=== PATIENT | female | born 1985 | race Caucasian/White ===

== ENCOUNTER 2022-10-25 18:46 | Inpatient (IN) ==
--- NOTE | 2022-10-25 18:52 | Emergency Department Note ---
Impression & Plan Large bowel obstruction, Colonic mass, Vomiting, Generalized abdominal pain, Hypokalemia ED Provider Note NAME: MEHRDAD HASSAN AGE: 37 SEX: F ARRIVES VIA: Ambulance INFORMANT: Patient ED PROVIDER(S): Pete Lazar MD CHIEF COMPLAINT: Abdominal pain, nausea and vomiting. PLAN: Disposition: Admit MEDICAL DECISION MAKING: The patient is a pleasant 37-year-old woman with a past medical history of PTSD, hypertension, asthma who presents to the emergency department via EMS and accompanied by her partner for evaluation of continued nausea, vomiting/dry heav ing and abdominal pain which began on when she was seen in this emergency department and had a CT scan that was interpreted at the time as enteritis with description of liquid fecal retention in the ascending colon. She reports she has been attempting to manage her symptoms as instructed and attempting to hydrate with Pedialyte but cannot keep anything down. She reports feeling feverish since her symptoms began but denies objective fevers. She denies any cough, congestion, chest pain or shortness of breath. On arrival to the emergency department the patient is uncomfortable no acute distress, afebrile heart in the 100s and vital signs otherwise stable. She appears clinically dry. She has generalized abdominal discomfort without discrete tenderness. She has no guarding or rebound. WBC 11K decreased from several days ago with neutrophil predominance though no left shift. H/H is similar to prior. Platelets 611K, nonspecific. Chemistry without metabolic acidosis. Potassium 3.4 and electrolytes without significant abnormality. Total bilirubin 1.1 with direct bilirubin 0.3, nonspecific and approximate to prior. LFTs otherwise unremarkable. Lipase not elevated. hCG negative. UA without convincing evidence of infection as epithelial cells are present. Respiratory viral panel/[employer] was negative. CT of the abdomen pelvis was performed and demonstrates findings consistent with obstructive process with distention of the small bowel and right colon related to an apple core lesion seen at the level of the right transverse colon just adjacent to the hepatic flexure. Additional note is made of distribution of punctate air along the wall of the right ascending colon that is nonspecific and is difficult to exclude early or mild pneumatosis though upon discussion with stat rad radiology it is likely within the bowel though cannot say definitively. Per my discussion with the stat rad radiologist the patient's CT did appear similar several days ago. I did review the findings with the patient who after initial treatment with IV fluid hydration, antiemetics and dicyclomine had reported improvement to the degree where she had initially requested to RN to be discharged while we were still awaiting her CT report. However at this time she reports that her nausea and pain are returning. Upon my description of her findings which I reviewed on the computer at the bedside with the patient and her partner the patient describes that she was informed of a colonic lesion in the transverse colon when she had a CT scan of her abdomen in August which did not show evidence of obstruction at that time. A colonoscopy was subsequently scheduled for the first week of September but she reports she became sick when attempting to take the colonic prep and had not followed up subsequently about next steps. Case was discussed with general surgery on-call, Dr. Azul, who was able to review the patient's images. Appreciate consultation and recommendations. Agrees with placement of NG tube for decompression and plan will be for reassessment in the morning for consideration of continued conservative management versus surgical intervention. Lactic acid subsequently performed and was within normal limits. Patient did agree with placement of NG tube which per my review of plain film was appropriately placed. Case was discussed [place]. Luther, [facility] [place], who will evaluate the patient for admission. Triage Nursing notes reviewed and agree them. Prior/outside medical records reviewed Vital Signs: reviewed Differential diagnosis: Appendicitis, ovarian cyst, ovarian torsion, ectopic , TOA, PID, infections, diverticulitis, UTI, obstruction, mesenteric ischemia, aortic pathology, inflammatory bowel disease, renal colic, PUD, pancreatitis, biliary pathology, hernia, volvulus, constipation, as well as other pathologies. ER treatment provided: See below. Diagnostics interpreted by me: Cardiac Monitoring: An order for continuous cardiac monitoring was placed and demonstrated sinus tachycardia, 102 bpm, no ectopy. Laboratory studies: See below Imaging studies: See below Consultation(s): Dr. Azul, general surgery on-call. Dr. Luther [facility] [place]. HPI: The patient is a pleasant 37-year-old woman with a past medical history of PTSD, hypertension, asthma who presents to the emergency department via EMS and accompanied by her partner for evaluation of continued nausea, vomiting/dry heaving and abdominal pain which began on when she was seen in this emergency department and had a CT scan that was interpreted at the time as enteritis with description of liquid fecal retention in the ascending colon. She reports she has been attempting to manage her symptoms as instructed and attempting to hydrate with Pedialyte but cannot keep anything down. She reports feeling feverish since her symptoms began but denies objective fevers. She denies any cough, congestion, chest pain or shortness of breath. ROS: See above HPI for pertinent positives & negatives. A total of 10 systems reviewed and were otherwise negative. VITALS:See Below PHYSICAL EXAMINATION: GENERAL: Awake, alert, comfortable-appearing, in no distress, BMI 36.6. HENT: Normocephalic, atraumatic. Oropharynx with dry mucous membranes and otherwise unremarkable. EYES: Normal conjunctiva. Sclera non-icteric. NECK: Supple. No nuchal rigidity. FROM. No JVD. RESPIRATORY: Clear to auscultation. CARDIAC: Tachycardic rate, normal rhythm. Extremities warm and well perfused. Pulses equal. ABDOMEN: Soft, non-distended. Generalized abdominal discomfort without discrete tenderness to palpation. No rebound or guarding. No masses. RECTAL: Deferred. MUSCULOSKELETAL: Chest examination reveals no tenderness. The back is symmetrical on inspection without obvious abnormality. There is no CVA tenderness to palpation. No joint edema. LOWER EXTREMITIES: Calves are equal size bilaterally and non-tender. No edema. No discoloration. NEURO: Normal sensorium. No sensory or motor deficits noted. SKIN: No rash or jaundice noted. Pete Lazar MD Past Med/Surg History Medical History Allergic rhinitis Anemia Anxiety Asthma inhaler prn>has not used recently History of COVID-19 02/2020--no issues now Major depression PTSD (post-traumatic stress disorder) Surgical History History of tooth extraction all top teeth removed History of wisdom tooth extraction Hx laparoscopic cholecystectomy (05/07/21) Robotic Assisted Laparoscopic Cholecystectomy - Alexis Dyer DO 05/07/2021 Family History Father Skin cancer Diabetes Hypertension Mother Diabetes Kidney disease Hypertension Other No family history of adverse response to anesthesia Denies family history of Ovarian cancer Prostate cancer Myocardial infarction Breast cancer Colorectal cancer Social History Smoking Status: Never smoker Second Hand Exposure: No; Do You Dip or Chew Tobacco: No; Hx Alcohol Use: No Hx Substance Use: No Preferred Language: Ukrainian Communication Ability: Effective Visual Impairment: Limited Hearing Ability: Normal 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 Seatbelt Use: always Sunscreen Use: Yes Assistive Devices: Denture - Upper and Glasses Allergies Allergies Allergy/AdvReac Type Severity Reaction Status Date / Time No Known Allergies Allergy Mild Verified 08/27/22 09:17 Home Meds Home Medications Medication Instructions Recorded Confirmed venlafaxine 150 mg 150 mg PO QAM ##0 12/03/17 10/25/22 capsule,extended release 24 hr (Effexor XR) gabapentin 100 mg capsule 100 mg PO QID #0 caps 09/25/20 10/25/22 aspirin 81 mg tablet,delayed 81 mg PO DAILY 09/22/21 10/25/22 release cetirizine 10 mg tablet (Zyrtec) 10 mg PO HS 08/27/22 10/25/22 Zofran 1 tab PO DIRECTED PRN N/V 10/25/22 10/25/22 acetaminophen 500 mg tablet 500 mg PO Q6H PRN Pain 10/25/22 10/25/22 fluticasone propionate 110 2 puff inhalation BID PRN Other 10/25/22 10/25/22 mcg/actuation HFA aerosol inhaler (Flovent HFA) Previous Rx's Medication Instructions Recorded albuterol sulfate 90 mcg/actuation 2 puff inhalation Q4H PRN 03/17/22 aerosol inhaler (Ventolin HFA) Shortness Of Breath #18 grams lisinopril 10 mg tablet 10 mg PO QAM #90 tabs 10/12/22 hydroxyzine HCl 10 mg tablet 10 mg PO TID PRN anxiety #30 tabs 10/22/22 Results & Data (ED) Vital Signs Vital Signs - 24 hr 10/25/22 18:50 10/25/22 18:50 10/25/22 18:54 Temperature 36.9 C 36.9 C Temperature Source Oral Oral Pulse Rate 101 H 102 H Pulse Rate [Right Radial] Respiratory Rate 18 12 Respiratory Effort / Characteristics Non-Labored Respiratory Depth Normal Respiratory Pattern Regular Blood Pressure 120/85 Blood Pressure [Right Arm] Blood Pressure Mean 96 Blood Pressure Mean [Right Arm] Pulse Oximetry 100 100 Oxygen Delivery Method Room Air Room Air Sepsis Recent Fever Within 48 Hours No Sepsis New/Unexplained Change in Mental Status No Sepsis Action Taken by Nursing No Action Required 10/25/22 20:42 10/25/22 22:00 10/25/22 23:00 Temperature Temperature Source Pulse Rate Pulse Rate [Right Radial] 92 H 89 Respiratory Rate 16 18 15 Respiratory Effort / Characteristics Respiratory Depth Respiratory Pattern Blood Pressure Blood Pressure [Right Arm] 118/84 141/84 H Blood Pressure Mean Blood Pressure Mean [Right Arm] 95 103 Pulse Oximetry 100 97 Oxygen Delivery Method Room Air Room Air Sepsis Recent Fever Within 48 Hours Sepsis New/Unexplained Change in Mental Status Sepsis Action Taken by Nursing 10/26/22 01:00 Temperature Temperature Source Pulse Rate Pulse Rate [Right Radial] 100 H Respiratory Rate 16 Respiratory Effort / Characteristics Non-Labored Spontaneous Respiratory Depth Normal Respiratory Pattern Regular Blood Pressure Blood Pressure [Right Arm] 130/82 Blood Pressure Mean Blood Pressure Mean [Right Arm] 98 Pulse Oximetry 99 Oxygen Delivery Method Room Air Sepsis Recent Fever Within 48 Hours Sepsis New/Unexplained Change in Mental Status Sepsis Action Taken by Nursing Laboratory Data Attestation: I reviewed the patient's lab results. 10/25/22 19:02 10/25/22 19:02 Lab Results 10/25/22 10/25/22 10/25/22 Range/Units 19:02 19:02 19:02 WBC 11.15 H (4.8-10.8) K/ul RBC 4.48 (4.20-5.40) M/uL Hgb 9.8 L (12.0-16.0) g/dl Hct 32.1 L (37.0-47.0) % MCV 71.7 L (80.0-100.0) fL MCH 21.9 L (25.0-34.0) pg MCHC 30.5 L (32.0-36.0) g/dL RDW Std Deviation 38.4 (36.4-46.3) fL RDW Coeff of Kenneth 15.0 H (11.5-14.5) % Plt Count 611 H (130-400) K/uL MPV 8.5 L (9.4-12.4) fL Immature Gran % (Auto) 0.6 % Neut % (Auto) 69.8 % Lymph % (Auto) 19.6 % Glades % (Auto) 8.3 % Eos % (Auto) 1.2 % Baso % (Auto) 0.5 % Neut # (Auto) 7.78 H (1.40-6.50) K/uL Lymph # (Auto) 2.19 (1.2-3.4) K/uL Glades # (Auto) 0.92 H (0.11-0.59) K/uL Eos # (Auto) 0.13 (0-0.50) K/uL Baso # (Auto) 0.06 (0-0.2) K/uL Immature Gran # (Auto) 0.07 (0.01-0.20) K/uL Sodium 132 L (136-145) mmol/L Potassium 3.4 L (3.5-5.1) mmol/L Chloride 94 L (98-107) mmol/L Carbon Dioxide 28 (21-32) mmol/L Anion Gap 10 (3-11) BUN 13 (6-23) mg/dl Creatinine 0.82 (0.6-1.2) mg/dl Est Cr Clr Drug Dosing 113.8 ml/min Est GFR ( Amer) 106.0 ml/min Est GFR (Non-Af Amer) 91.4 ml/min BUN/Creatinine Ratio 15.9 (10-20) Glucose 100 H (70-99(Fasting)) mg/dl Lactate (0.4-2.0) mmol/L Calcium 9.4 (8.6-10.3) mg/dl Magnesium 1.9 (1.7-2.4) mg/dl Total Bilirubin 1.1 H (0.2-1.0) mg/dl Direct Bilirubin 0.3 H (0-0.2) mg/dl AST 17 (13-39) U/L ALT 16 (7-52) U/L Alkaline Phosphatase 72 (34-104) U/L Total Protein 7.4 (6.0-8.3) gm/dl Albumin 4.4 (3.4-5.0) gm/dl Globulin 3.0 (2.5-4.0) gm/dl Albumin/Globulin Ratio 1.5 (0.9-2) Lipase 14 (11-82) U/L HCG, Qual Negative (Negative) Urine Color Urine Appearance (Clear) Urine pH (4.5-7.5) Ur Specific [place] (1.000-1.030) Urine Protein (Negative) Urine Glucose (UA) (Negative) Urine Ketones (Negative) Urine Blood (Negative) Urine Nitrite (Negative) Urine Bilirubin (Negative) Urine Urobilinogen (Negative) Ur Leukocyte Esterase (Negative) Urine WBC (Auto) (0-5) /hpf Urine RBC (Auto) (0-4) /hpf U Hyaline Cast (Auto) (0-5) /lpf U Epithel Cells (Auto) (0-5) /lpf Urine Bacteria (Auto) (Negative) Adenovirus (PCR) (NotDetected) B. pertussis DNA (PCR) (NotDetected) B.parapertussis DNA PCR (NotDetected) C. pneumoniae DNA (PCR) (NotDetected) Coronavirus OC43 (PCR) (NotDetected) Coronavirus HKU1 (PCR) (NotDetected) Coronavirus 229E (PCR) (NotDetected) SARS-CoV-2 (PCR) (NotDetected) Coronavirus NL63 (PCR) (NotDetected) Human Metapneumovir PCR (NotDetected) Influenza Type A (PCR) (NotDetected) Influenza Type B (PCR) (NotDetected) M. pneumoniae (PCR) (NotDetected) Parainfluenza 1 (PCR) (NotDetected) Parainfluenza 2 (PCR) (NotDetected) Parainfluenza 3 (PCR) (NotDetected) Parainfluenza 4 (PCR) (NotDetected) RSV (PCR) (NotDetected) Entero/Rhino (PCR) (NotDetected) 10/25/22 10/26/22 10/26/22 Range/Units 19:02 01:16 02:09 WBC (4.8-10.8) K/ul RBC (4.20-5.40) M/uL Hgb (12.0-16.0) g/dl Hct (37.0-47.0) % MCV (80.0-100.0) fL MCH (25.0-34.0) pg MCHC (32.0-36.0) g/dL RDW Std Deviation (36.4-46.3) fL RDW Coeff of Kenneth (11.5-14.5) % Plt Count (130-400) K/uL MPV (9.4-12.4) fL Immature Gran % (Auto) % Neut % (Auto) % Lymph % (Auto) % Glades % (Auto) % Eos % (Auto) % Baso % (Auto) % Neut # (Auto) (1.40-6.50) K/uL Lymph # (Auto) (1.2-3.4) K/uL Glades # (Auto) (0.11-0.59) K/uL Eos # (Auto) (0-0.50) K/uL Baso # (Auto) (0-0.2) K/uL Immature Gran # (Auto) (0.01-0.20) K/uL Sodium (136-145) mmol/L Potassium (3.5-5.1) mmol/L Chloride (98-107) mmol/L Carbon Dioxide (21-32) mmol/L Anion Gap (3-11) BUN (6-23) mg/dl Creatinine (0.6-1.2) mg/dl Est Cr Clr Drug Dosing ml/min Est GFR ( Amer) ml/min Est GFR (Non-Af Amer) ml/min BUN/Creatinine Ratio (10-20) Glucose (70-99(Fasting)) mg/dl Lactate 1.2 (0.4-2.0) mmol/L Calcium (8.6-10.3) mg/dl Magnesium (1.7-2.4) mg/dl Total Bilirubin (0.2-1.0) mg/dl Direct Bilirubin (0-0.2) mg/dl AST (13-39) U/L ALT (7-52) U/L Alkaline Phosphatase (34-104) U/L Total Protein (6.0-8.3) gm/dl Albumin (3.4-5.0) gm/dl Globulin (2.5-4.0) gm/dl Albumin/Globulin Ratio (0.9-2) Lipase (11-82) U/L HCG, Qual (Negative) Urine Color Dark Yellow Urine Appearance Clear (Clear) Urine pH 6.0 (4.5-7.5) Ur Specific [place] > 1.045 H (1.000-1.030) Urine Protein Trace H (Negative) Urine Glucose (UA) Negative (Negative) Urine Ketones Trace H (Negative) Urine Blood Negative (Negative) Urine Nitrite Negative (Negative) Urine Bilirubin 1+ H (Negative) Urine Urobilinogen Positive H (Negative) Ur Leukocyte Esterase 2+ H (Negative) Urine WBC (Auto) >30 H (0-5) /hpf Urine RBC (Auto) 0-4 (0-4) /hpf U Hyaline Cast (Auto) 0 (0-5) /lpf U Epithel Cells (Auto) >30 H (0-5) /lpf Urine Bacteria (Auto) Negative (Negative) Adenovirus (PCR) Not Detected (NotDetected) B. pertussis DNA (PCR) Not Detected (NotDetected) B.parapertussis DNA PCR Not Detected (NotDetected) C. pneumoniae DNA (PCR) Not Detected (NotDetected) Coronavirus OC43 (PCR) Not Detected (NotDetected) Coronavirus HKU1 (PCR) Not Detected (NotDetected) Coronavirus 229E (PCR) Not Detected (NotDetected) SARS-CoV-2 (PCR) Not Detected (NotDetected) Coronavirus NL63 (PCR) Not Detected (NotDetected) Human Metapneumovir PCR Not Detected (NotDetected) Influenza Type A (PCR) Not Detected (NotDetected) Influenza Type B (PCR) Not Detected (NotDetected) M. pneumoniae (PCR) Not Detected (NotDetected) Parainfluenza 1 (PCR) Not Detected (NotDetected) Parainfluenza 2 (PCR) Not Detected (NotDetected) Parainfluenza 3 (PCR) Not Detected (NotDetected) Parainfluenza 4 (PCR) Not Detected (NotDetected) RSV (PCR) Not Detected (NotDetected) Entero/Rhino (PCR) Not Detected (NotDetected) Administered Medications Lactated Ringer's (Lr) 1,000 mls @ 125 mls/hr IV .Q8H GAYLA Stop: 11/25/22 03:29 Last Admin: 10/26/22 04:40 Dose: 125 mls/hr Documented By: LANEY Morphine Sulfate (Morphine Sulfate 2 Mg/Ml Carp) 2 mg IV Q4H PRN PRN Reason: Moderate Pain (Scale 4, 5, 6) Stop: 11/09/22 04:06 Last Admin: 10/26/22 04:39 Dose: 2 mg Documented By: LANEY Ondansetron HCl (Ondansetron Inj 2 Mg/Ml 2 Ml Vial) 4 mg IV Q4H PRN PRN Reason: Nausea Stop: 11/25/22 03:59 Last Admin: 10/26/22 04:39 Dose: 4 mg Documented By: LANEY Discontinued Medications Dicyclomine HCl (Dicyclomine Hcl 10 Mg/Ml 2 Ml Amp/Vial) 20 mg IM NOW ONE Stop: 10/25/22 20:25 Last Admin: 10/25/22 21:27 Dose: 20 mg Documented By: EFREN Sodium Chloride (Nss 1000ml) 1,000 mls @ 999 mls/hr IV .Q1H1M ONE Stop: 10/25/22 19:55 Last Infusion: 10/25/22 20:45 Dose: 999 mls/hr Documented By: Admin: 10/25/22 19:14 Dose: 999 mls/hr Documented By: EFREN Famotidine (Pepcid 20mg Iv Push) 20 mg in 5 mls @ 2.5 mls/min IV NOW STA Stop: 10/25/22 18:56 Last Admin: 10/25/22 19:14 Dose: 2.5 mls/min Documented By: EFREN Sodium Chloride (Nss 1000ml) 1,000 mls @ 999 mls/hr IV .Q1H1M ONE Stop: 10/25/22 21:24 Last Infusion: 10/25/22 22:29 Dose: 999 mls/hr Documented By: Admin: 10/25/22 21:26 Dose: 999 mls/hr Documented By: EFREN Acetaminophen (Ofirmev) 1,000 mg in 100 mls @ 400 mls/hr IV NOW STA Stop: 10/25/22 20:38 Last Infusion: 10/25/22 21:58 Dose: 400 mls/hr Documented By: Admin: 10/25/22 21:27 Dose: 400 mls/hr Documented By: EFREN Promethazine HCl (Phenergan) 25 mg in 51 mls @ 204 mls/hr IV NOW STA Stop: 10/25/22 20:41 Last Infusion: 10/25/22 21:41 Dose: 204 mls/hr Documented By: Admin: 10/25/22 21:26 Dose: 204 mls/hr Documented By: EFREN Sodium Chloride (Nss 1000ml) 1,000 mls @ 999 mls/hr IV .Q1H1M ONE Stop: 10/26/22 01:39 Last Infusion: 10/26/22 04:01 Dose: 0 mls/hr Documented By: Admin: 10/26/22 02:10 Dose: 999 mls/hr Documented By: SUSIE Ioversol (Optiray 320 100ml) 94 ml IV ONCE ONE Stop: 10/25/22 21:25 Last Admin: 10/25/22 21:25 Dose: 94 ml Documented By: KARMEN Lidocaine HCl (Lidocaine 2% Jelly 5 Ml Tube) 5 ml EXT NOW ONE Stop: 10/26/22 00:54 Last Admin: 10/26/22 01:26 Dose: 5 ml Documented By: SUSIE Lorazepam (Lorazepam 2 Mg/1 Ml Vial) 0.5 mg IV NOW STA Stop: 10/26/22 00:54 Last Admin: 10/26/22 01:06 Dose: 0.5 mg Documented By: SUSIE Morphine Sulfate (Morphine Sulfate 4 Mg/Ml 1 Ml Carp\Vial) 4 mg IV NOW STA Stop: 10/26/22 00:08 Last Admin: 10/26/22 00:27 Dose: 4 mg Documented By: SUSIE Ondansetron HCl (Ondansetron Inj 2 Mg/Ml 2 Ml Vial) 4 mg IV NOW STA Stop: 10/25/22 18:56 Last Admin: 10/25/22 19:14 Dose: 4 mg Documented By: EFREN Ondansetron HCl (Ondansetron Inj 2 Mg/Ml 2 Ml Vial) 4 mg IV NOW STA Stop: 10/26/22 00:08 Last Admin: 10/26/22 00:27 Dose: 4 mg Documented By: SUSIE Imaging Data Radiologist's Impression: Abdomen/Pelvis CT 10/25/22 20:27 CR Exam(s): CT ABDOMEN + PELVIS With Contrast IV Amt: 94 ml optiray 320 EXAM: CT Abdomen and Pelvis With Intravenous Contrast CLINICAL HISTORY: Reason for exam: abd pain, n/v. TECHNIQUE: Axial computed tomography images of the abdomen and pelvis with intravenous contrast. Automated exposure control was utilized for the study. A dose lowering technique was utilized adhering to the principles of ALARA. CONTRAST: Patient received 94 ml optiray 320 of IV contrast COMPARISON: 10/22/2022. FINDINGS: Lung bases: Unremarkable. No mass. No consolidation. ABDOMEN: Liver: Unremarkable. No mass. Gallbladder and bile ducts: Nonvisualized gallbladder suggestive of previous cholecystectomy. No ductal dilation. Pancreas: Unremarkable. No mass. No ductal dilation. Spleen: Unremarkable. No splenomegaly. Adrenals: Unremarkable. No mass. Kidneys and ureters: Unremarkable. No solid mass. No hydronephrosis. Stomach and bowel: There is unusual distribution of air throughout the right colon along the wall, cannot exclude pneumatosis of the findings may indicate nonspecific distribution of air along the wall. Diffuse dilatation of the right colon and several small bowel loops demonstrated with fluid within the lumen. These findings are most likely secondary to an apple core lesion identified at the level of the right transverse colon, just to the left of the hepatic flexure of the colon. The remainder of the descending colon reveals decompressed lumen. No mucosal thickening. PELVIS: Appendix: No findings to suggest acute appendicitis. Bladder: Unremarkable. No mass. Reproductive: Unremarkable as visualized. ABDOMEN and PELVIS: Intraperitoneal space: Unremarkable. No free air. No significant fluid collection. Bones/joints: No acute fracture. No dislocation. Soft tissues: Unremarkable. Vasculature: Unremarkable. No abdominal aortic aneurysm. Lymph nodes: Unremarkable. No enlarged lymph nodes. IMPRESSION: 1. Distention of the small bowel and right colon, likely secondary to an obstructive process from an apple core lesion seen at the level of the transverse right colon, just to the left side of the hepatic flexure. Recommend follow-up with colonoscopy. 2. Distribution of punctate air along the wall of the right ascending colon, nonspecific, difficult to exclude early or mild pneumatosis. Clinical significance is indeterminate and if indicated, follow-up recommended to evaluate progression. 3. Question prior cholecystectomy otherwise unremarkable abdominal viscera. Communications: Call Doctor Other Electronically signed by: Marcie Justin MD 10/25/22 23:35 PM Discharge Plan Visit Data Chief Complaint: Vomiting Stated Complaint: NAUSEA, VOMITING ED Provider: Pete Lazar Discharge Problem: Large bowel obstruction, Colonic mass, Vomiting, Generalized abdominal pain, Hypokalemia Patient Disposition: Admitted As Inpatient Discharge Instructions Interventions: ED Discharge Assessment Last Done: 10/26/22 03:25
[2022-10-25] MEDS ORDERED: ONDANSETRON INJ 2 MG/ML 2 ML VIAL IV STA (18:55)
[2022-10-25] MEDS ORDERED: FAMOTIDINE 20MG IV PUSH 20 MG/5 ML SYR IV STA (18:55)
[2022-10-25] MEDS ORDERED: SODIUM CHLORIDE 0.9% 1000ML 1,000 ML IV ONE ×2 (18:55→20:24)
[2022-10-25 19:33] LABS: Basophils # (auto) 0.06 K/uL (0-0.2); Basophils % (auto) 0.5 %; Eosinophils # (auto) 0.13 K/uL (0-0.50); Eosinophils % (auto) 1.2 %; Hematocrit (blood only) 32.1 % (37.0-47.0); Hemoglobin 9.8 g/dl (12.0-16.0); Immature Granulocytes # (auto) 0.07 K/uL (0.01-0.20); Immature Granulocytes % (auto) 0.6 %; Lymphocytes # (auto) 2.19 K/uL (1.2-3.4); Lymphocytes % (auto) 19.6 %; Mean Corpuscular Hemoglobin 21.9 pg (25.0-34.0); Mean Corpuscular Hgb Conc 30.5 g/dL (32.0-36.0); Mean Corpuscular Volume 71.7 fL (80.0-100.0); Mean Platelet Volume 8.5 fL (9.4-12.4); Monocytes # (auto) 0.92 K/uL (0.11-0.59); Monocytes % (auto) 8.3 %; Neutrophils # (auto) 7.78 K/uL (1.40-6.50); Neutrophils % (auto) 69.8 %; Platelet Count 611 K/uL (130-400); RDW Standard Deviation 38.4 fL (36.4-46.3); Red Blood Count 4.48 M/uL (4.20-5.40); White Blood Count 11.15 K/ul (4.8-10.8)
[2022-10-25 19:44] LABS: Albumin Globulin Ratio 1.5 (0.9-2); Albumin Level 4.4 gm/dl (3.4-5.0); BUN Creatinine Ratio 15.9 (10-20); Bilirubin Direct 0.3 mg/dl (0-0.2); Bilirubin,Total 1.1 mg/dl (0.2-1.0); Calcium 9.4 mg/dl (8.6-10.3); Creatinine Clr Calc Pharmacy 113.8 ml/min; Est GFR (Non-African American) 91.4 ml/min; Magnesium 1.9 mg/dl (1.7-2.4); Potassium 3.4 mmol/L (3.5-5.1); Total Protein 7.4 gm/dl (6.0-8.3)
[2022-10-25 19:50] LABS: Pregnancy Test, Serum Negative (Negative)
[2022-10-25] MEDS ORDERED: ACETAMINOPHEN 1,000 MG/100 ML VIAL IV STA (20:24)
[2022-10-25] MEDS ORDERED: DICYCLOMINE HCL 10 MG/ML 2 ML AMP/VIAL IM ONE (20:24)
[2022-10-25] MEDS ORDERED: PROMETHAZINE 25 MG/51 ML BAG IV STA (20:27)
[2022-10-25] MEDS ORDERED: OPTIRAY 320 100ml IV ONE (21:24)
[2022-10-25 22:27] LABS: Adenovirus PCR Not Detected (NotDetected); Bordetella parapertussis PCR Not Detected (NotDetected); Bordetella pertussis PCR Not Detected (NotDetected); Chlamydia pneumoniae PCR Not Detected (NotDetected); Coronavirus 229E PCR Not Detected (NotDetected); Coronavirus CoV-2 (COVID19)PCR Not Detected (NotDetected); Coronavirus HKU1 PCR Not Detected (NotDetected); Coronavirus NL63 PCR Not Detected (NotDetected); Coronavirus OC43PCR Not Detected (NotDetected); Human Metapneumovirus PCR Not Detected (NotDetected); Influenza A PCR Not Detected (NotDetected); Influenza B PCR Not Detected (NotDetected); Mycoplasma pneumoniae PCR Not Detected (NotDetected); Parainfluenza Virus 1 PCR Not Detected (NotDetected); Parainfluenza Virus 2 PCR Not Detected (NotDetected); Parainfluenza Virus 3 PCR Not Detected (NotDetected); Parainfluenza Virus 4 PCR Not Detected (NotDetected); Respiratory Syncytial VirusPCR Not Detected (NotDetected); Rhinovirus/Enterovirus PCR Not Detected (NotDetected)
--- NOTE | 2022-10-25 23:36 | CT Scan Report ---
Exam(s): CT ABDOMEN + PELVIS With Contrast IV Amt: 94 ml optiray 320 EXAM: CT Abdomen and Pelvis With Intravenous Contrast CLINICAL HISTORY: Reason for exam: abd pain, n/v. TECHNIQUE: Axial computed tomography images of the abdomen and pelvis with intravenous contrast. Automated exposure control was utilized for the study. A dose lowering technique was utilized adhering to the principles of ALARA. CONTRAST: Patient received 94 ml optiray 320 of IV contrast COMPARISON: 10/22/2022. FINDINGS: Lung bases: Unremarkable. No mass. No consolidation. ABDOMEN: Liver: Unremarkable. No mass. Gallbladder and bile ducts: Nonvisualized gallbladder suggestive of previous cholecystectomy. No ductal dilation. Pancreas: Unremarkable. No mass. No ductal dilation. Spleen: Unremarkable. No splenomegaly. Adrenals: Unremarkable. No mass. Kidneys and ureters: Unremarkable. No solid mass. No hydronephrosis. Stomach and bowel: There is unusual distribution of air throughout the right colon along the wall, cannot exclude pneumatosis of the findings may indicate nonspecific distribution of air along the wall. Diffuse dilatation of the right colon and several small bowel loops demonstrated with fluid within the lumen. These findings are most likely secondary to an apple core lesion identified at the level of the right transverse colon, just to the left of the hepatic flexure of the colon. The remainder of the descending colon reveals decompressed lumen. No mucosal thickening. PELVIS: Appendix: No findings to suggest acute appendicitis. Bladder: Unremarkable. No mass. Reproductive: Unremarkable as visualized. ABDOMEN and PELVIS: Intraperitoneal space: Unremarkable. No free air. No significant fluid collection. Bones/joints: No acute fracture. No dislocation. Soft tissues: Unremarkable. Vasculature: Unremarkable. No abdominal aortic aneurysm. Lymph nodes: Unremarkable. No enlarged lymph nodes. IMPRESSION: 1. Distention of the small bowel and right colon, likely secondary to an obstructive process from an apple core lesion seen at the level of the transverse right colon, just to the left side of the hepatic flexure. Recommend follow-up with colonoscopy. 2. Distribution of punctate air along the wall of the right ascending colon, nonspecific, difficult to exclude early or mild pneumatosis. Clinical significance is indeterminate and if indicated, follow-up recommended to evaluate progression. 3. Question prior cholecystectomy otherwise unremarkable abdominal viscera. Communications: Call Doctor Other Electronically signed by: Marcie Justin MD 10/25/22 23:35 PM
[2022-10-26] MEDS ORDERED: ONDANSETRON INJ 2 MG/ML 2 ML VIAL IV STA (00:07)
[2022-10-26] MEDS ORDERED: MoRPHine SULFATE 4 MG/ML 1 ML CARP\\VIAL IV STA (00:07)
[2022-10-26] MEDS ORDERED: SODIUM CHLORIDE 0.9% 1000ML 1,000 ML IV ONE (00:39)
[2022-10-26] MEDS ORDERED: LORazepam 2 MG/1 ML VIAL IV STA (00:53)
[2022-10-26] MEDS ORDERED: LIDOCAINE 2% JELLY 5 ML TUBE EXT ONE (00:53)
[2022-10-26 01:29] LABS: Appearance Urine Clear (Clear); Bacteria Urine Automated Negative (Negative); Blood Urine Negative (Negative); Color Urine Dark Yellow; Epithelial Cell Urine Auto >30 /lpf (0-5); Glucose Urine UA Negative (Negative); Ketones Urine Trace (Negative); Leukocyte Esterase Urine 2+ (Negative); Nitrite Urine Negative (Negative); Protein Urine Trace (Negative); RBC Urine Automated 0-4 /hpf (0-4); Specific Gravity Urine > 1.045 (1.000-1.030); Urobilinogen Urine Positive (Negative); WBC Urine Automated >30 /hpf (0-5)
[2022-10-26 01:30] LABS: Bilirubin Urine 1+ (Negative)
[2022-10-26 01:38] LABS: Cast Urine Automated 0 /lpf (0-5)
--- NOTE | 2022-10-26 03:13 | History & Physical Report ---
Date of Service October 26, 2022 Assessment & Plan (1) Large bowel obstruction: Plan: Patient is a 37-year-old female with history of known colonic mass found by CT imaging. Patient found today to have colonic obstruction. An NG tube has been placed and patient is hemodynamically stable. -Admit to MedSurg -Likely secondary to colonic mass described as apple core lesion in right colon -NG tube placed for decompression -N.p.o. status, LR at 125 cc/h -General surgery consulted for bowel obstruction, appreciate recommendations -Consider GI consult for colonoscopy -Zofran as needed for nausea (2) Hypokalemia: Plan: - Likely from poor p.o. intake -Replete as needed (3) Colonic mass: Plan: - As above -Patient requiring colonoscopy with biopsy to confirm diagnosis -Imaging suspicious for malignancy (4) Anxiety: Plan: - Hold Effexor and hydroxyzine in the setting of n.p.o. -We will put Ativan as needed in for anxiety (5) Hypertension: Plan: - Hold BP medications in the setting of poor p.o. intake and n.p.o. status (6) PTSD (post-traumatic stress disorder): Plan: - As above (7) Major depression: Plan: -As above (8) Asthma: Plan: - Albuterol as needed for wheezing/shortness of breath Plan Dispo: Admit to MedSurg with general surgery consult Diet: N.p.o. with LR at 125 cc/h DVT prophylaxis: Lovenox CODE STATUS: Full code History of Present Illness Chief Complaint: Nausea/Vomiting Primary Care Provider: Svetlana Hunt DO Patient is a 37-year-old female presents to the hospital for nausea and vomiting. Since last , patient has had intermittent nausea with poor p.o. intake and it was acutely worse tonight compared to earlier. She was in the ED 2 days ago and at that time she was told she had a "GI bug". She reports to me that the only thing that she is able to keep down is Sprite and some water. Of note, patient had CT of the and then day and was found to have a lesion suspicious for colonic malignancy. She was to follow-up and have a colonoscopy done, however, she was unable to tolerate the prep and this was never done. Patient denies headache, bright red blood per rectum, hematemesis, or symptoms. She does report that her last bowel movement was 10/25 in the afternoon. Otherwise no other complaints at this time ED course: Patient evaluated by ED provider. Labs were significant for mildly elevated white count 11.1, hemoglobin of 9.8, platelet count of 611, sodium of 132, potassium 3.4, chloride of 94, total bilirubin 1.1, direct bilirubin of 0.3, and urinalysis positive for bilirubin, leukocyte esterase, and white blood cells. A CT of the abdomen demonstrated distention of the small bowel and right colon likely secondary from obstructive process from an apple core lesion seen at the level of the transverse right colon. Due to poor p.o. intake, likely obstruction, and hypokalemia, the hospital service was consulted for admission and further management. Allergies Allergy/AdvReac Type Severity Reaction Status Date / Time No Known Allergies Allergy Mild Verified 08/27/22 09:17 Home Medications Medication Instructions Recorded Confirmed Type venlafaxine 150 mg 150 mg PO QAM ##0 12/03/17 11/02/22 History capsule,extended release 24 hr (Effexor XR) gabapentin 100 mg capsule 100 mg PO QID #0 caps 09/25/20 11/02/22 History albuterol sulfate 90 mcg/actuation 2 puff inhalation Q4H PRN 03/17/22 11/02/22 Rx aerosol inhaler (Ventolin HFA) Shortness Of Breath #18 grams hydroxyzine HCl 10 mg tablet 10 mg PO TID PRN anxiety #30 tabs 10/22/22 11/02/22 Rx fluticasone propionate 110 2 puff inhalation BID PRN Other 10/25/22 11/02/22 History mcg/actuation HFA aerosol inhaler (Flovent HFA) oxycodone-acetaminophen 5 mg-325 1 tab PO Q4H PRN pain #18 tabs 10/30/22 11/02/22 Rx mg tablet acetaminophen 500 mg tablet 1,000 mg PO Q6H PRN Pain 11/02/22 11/02/22 History cetirizine 10 mg tablet (Zyrtec) 10 mg PO HS PRN allergy symptoms 11/02/22 11/02/22 History Past Med/Surg History Medical History Allergic rhinitis Anemia Anxiety Asthma inhaler prn>has not used recently History of COVID-19 02/2020--no issues now Major depression PTSD (post-traumatic stress disorder) Surgical History History of tooth extraction all top teeth removed History of wisdom tooth extraction Hx laparoscopic cholecystectomy (05/07/21) Robotic Assisted Laparoscopic Cholecystectomy - Alexis Dyer, 05/07/2021 Family History Father Skin cancer Diabetes Hypertension Mother Diabetes Kidney disease Hypertension Other No family history of adverse response to anesthesia Denies family history of Ovarian cancer Prostate cancer Myocardial infarction Breast cancer Colorectal cancer Social History Smoking Status: Never smoker Second Hand Exposure: No; Do You Dip or Chew Tobacco: No; Hx Alcohol Use: No Hx Substance Use: No Preferred Language: Salvadorean Communication Ability: Effective Visual Impairment: Limited Hearing Ability: Normal Intensive Care Unit Registered Nurse Required: No Beliefs That Will Affect Care: None marital status: Current Living Situation: Family Current Living Situation Comment: and 4 kids current occupational status: employed How many Children do You have: 4 Feels Safe at Home: Yes Childhood Exposure to Second-Hand Smoke: No Diet: regular caffeine: Yes during the past year weight has: remained stable Dental Care, Regularly: Yes Physical Activity Frequency: 5-6 Times per Week Physical Activity Frequency Comment: walks. Seatbelt Use: always Sunscreen Use: Yes Assistive Devices: None Review of Systems Review of Systems: All systems reviewed & are unremarkable except as noted in HPI & below Physical Exam Constitutional: WD/WN, vitals as above Eyes: + anicteric sclerae Neck: trachea midline, no thyromegaly Respiratory: normal respiratory effort, lungs clear to auscultation Cardiovascular: RRR, no murmur, no edema Gastrointestinal (Abdomen): Inspection/Auscultation: abdomen normal to inspection and + hypoactive bowel sounds Musculoskeletal: Head/Neck/Chest: normocephalic and head atraumatic Neurologic: moves all extremities Psychiatric: Orientation: alert and oriented x 3 Results & Data Results & Data Vital Signs (Past 12 Hours) Vital Signs Temp Pulse Pulse Resp BP BP Pulse Ox 10/26/22 01:00 100 H 16 130/82 99 10/25/22 23:00 89 15 141/84 H 97 10/25/22 22:00 18 10/25/22 20:42 92 H 16 118/84 100 10/25/22 18:54 102 H 12 100 10/25/22 18:50 36.9 C 10/25/22 18:50 36.9 C 101 H 18 120/85 100 O2 Del Method 10/26/22 01:00 Room Air 10/25/22 23:00 Room Air 10/25/22 22:00 10/25/22 20:42 Room Air 10/25/22 18:54 Room Air 10/25/22 18:50 10/25/22 18:50 Room Air Code Status & VTE Plan VTE Prophylaxis Plan VTE Prophylaxis will be ordered: Yes Supervising Physician Co-Signing Physician Notes Attending addendum: I have physically seen this patient, have supervised the medical residents activities, and agree with the H&P unless as otherwise noted. Assessment and Plan: Large bowel obstruction- NPO LR at [address] with colon mass/apple core lesion on right colon as likely cause NG tube to low intermittent suction Consult gastroenterology and general surgery Zosyn 4.5 g IV every 8 hours Zofran 4 mg IV every 6 hours as needed Famotidine 20 mg IV every 12 hours Hypokalemia- Corrected with IV fluids and follow labs serially Hypertension- Oral medications on hold IV Lopressor/hydralazine as needed Remaining orders and notations as noted
[2022-10-26] MEDS ORDERED: LORazepam 2 MG/1 ML VIAL IV PRN (03:40)
[2022-10-26] MEDS ORDERED: ONDANSETRON INJ 2 MG/ML 2 ML VIAL IV PRN ×2 (04:00→10:58)
[2022-10-26] MEDS ORDERED: ALBUTEROL HFA 8 GM INHALER INH PRN (04:00)
[2022-10-26] MEDS ORDERED: MoRPHine SULFATE 4 MG/ML 1 ML CARP\\VIAL IV PRN (04:07)
[2022-10-26] MEDS ORDERED: MoRPHine SULFATE 2 MG/ML CARP IV PRN (04:07)
[2022-10-26] MEDS: LACTATED RINGER'S 1,000 ML IV SCH ×2 (04:40→16:04)
--- NOTE | 2022-10-26 07:34 | XRay Report ---
KUB CLINICAL HISTORY: Nasogastric tube placement. COMPARISON STUDY: CT of the abdomen and pelvis October 25, 2022. FINDINGS: The tip of the nasogastric tube is within the gastric fundus. Multiple loops of dilated sma ll bowel are again noted, as shown on CT. IMPRESSION: Tip of nasogastric tube within the gastric fundus. ACT 112: Negative or not required by law. Electronically signed by: Rolando Long M.D. 10/26/2022 7:31 AM
[2022-10-26] MEDS: ENOXAPARIN INJ 40 MG/0.4 ML SYR SQ SCH (08:24)
[2022-10-26] MEDS: FLUTICASONE FUROATE 200MCG 14 PUFFS/INHALER INH SCH (08:24)
--- NOTE | 2022-10-26 09:29 | Surgery Consultation ---
Date of Consultation October 26, 2022 Assessment & Plan (1) Colonic mass: (2) Large bowel obstruction: Plan 37-year-old woman with colonic mass and large bowel obstruction. 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 I had a discussion with her concerning the findings of the CT scan as well as the need for surgical management of this. We discussed the risks and benefits of a exploratory laparotomy with extended right hemicolectomy. All her questions were answered, she is agreeable to proceed. We will take her to the operating room at the earliest convenience. History of Present Illness Reason for Consultation: large bowel obstruction from transverse colon mass Requesting Physician: ER physician Attending Physician: Alysia Cervantes MD History of Present Illness 37-year-old woman presents with 3-day history of upper abdominal pain, distention, bloating. She has had nausea and vomiting with this. She states she has been having normal bowel movements. Flank pain in August and was seen in the emergency department at which time a CT scan demonstrated what appeared to be an apple core lesion in the transverse colon without obstruction. She was recommended to be admitted to the hospital for GI consultation and colonoscopy, however she left AMA. Patient colonoscopy, however she canceled it as she states she was unable to take the prep. She then continued in her usual state of health until October 22, at which point she represented to the emergency department with epigastric pain and bloating. A CT scan at that time redemonstrated the mass as well as a significant amount of fluid in the right colon. The CT read stated possible diarrheal illness or enteritis. She was discharged home and represented yesterday with the same symptoms. Repeat CT scan demonstrates again the apple core lesion in the proximal transverse colon, surrounding lymph nodes, near complete obstruction at the level of this mass and distended right colon. There does not appear to be any metastatic disease within the abdominal cavity/liver. She denies fevers or chills. She has been admitted to the hospital Allergies Allergy/AdvReac Type Severity Reaction Status Date / Time No Known Allergies Allergy Mild Verified 08/27/22 09:17 Home Medications Medication Instructions Recorded Confirmed Type venlafaxine 150 mg 150 mg PO QAM ##0 12/03/17 10/25/22 History capsule,extended release 24 hr (Effexor XR) gabapentin 100 mg capsule 100 mg PO QID #0 caps 09/25/20 10/25/22 History aspirin 81 mg tablet,delayed 81 mg PO DAILY 09/22/21 10/25/22 History release albuterol sulfate 90 mcg/actuation 2 puff inhalation Q4H PRN 03/17/22 10/25/22 Rx aerosol inhaler (Ventolin HFA) Shortness Of Breath #18 grams cetirizine 10 mg tablet (Zyrtec) 10 mg PO HS 08/27/22 10/25/22 History lisinopril 10 mg tablet 10 mg PO QAM #90 tabs 10/12/22 10/25/22 Rx hydroxyzine HCl 10 mg tablet 10 mg PO TID PRN anxiety #30 tabs 10/22/22 10/25/22 Rx Zofran 1 tab PO DIRECTED PRN N/V 10/25/22 10/25/22 History acetaminophen 500 mg tablet 500 mg PO Q6H PRN Pain 10/25/22 10/25/22 History fluticasone propionate 110 2 puff inhalation BID PRN Other 10/25/22 10/25/22 History mcg/actuation HFA aerosol inhaler (Flovent HFA) Patient History Medical History Allergic rhinitis Anemia Anxiety Asthma inhaler prn>has not used recently History of COVID-19 02/2020--no issues now Major depression PTSD (post-traumatic stress disorder) Surgical History History of tooth extraction all top teeth removed History of wisdom tooth extraction Hx laparoscopic cholecystectomy (05/07/21) Robotic Assisted Laparoscopic Cholecystectomy - Alexis Dyer DO 05/07/2021 Family History Father Skin cancer Diabetes Hypertension Mother Diabetes Kidney disease Hypertension Other No family history of adverse response to anesthesia Denies family history of Ovarian cancer Prostate cancer Myocardial infarction Breast cancer Colorectal cancer Social History Smoking Status: Never smoker Second Hand Exposure: No; Do You Dip or Chew Tobacco: No; Hx Alcohol Use: No Hx Substance Use: No Preferred Language: Kenyan Communication Ability: Effective Visual Impairment: Limited Hearing Ability: Normal Webfocus Developer Required: No Beliefs That Will Affect Care: None marital status: Current Living Situation: Family Current Living Situation Comment: and 4 kids current occupational status: employed How many Children do You have: 4 Other Information That Helps Us Care for You: No Feels Safe at Home: Yes Safety Concerns: Feels Safe At This Time Childhood Exposure to Second-Hand Smoke: No Diet: regular caffeine: Yes during the past year weight has: remained stable Dental Care, Regularly: Yes Physical Activity Frequency: 5-6 Times per Week Physical Activity Frequency Comment: walks. Seatbelt Use: always Sunscreen Use: Yes Assistive Devices: Denture - Upper and Glasses Review of Systems Review of Systems: All systems reviewed & are unremarkable except as noted in HPI & below Physical Exam Constitutional: WD/WN, vitals as above Eyes: PERRL, conjunctivae normal, anicteric sclerae Neck: trachea midline, no thyromegaly Respiratory: normal respiratory effort; no respiratory distress and no labored breathing Cardiovascular: Rate/Rhythm: regular rate and regular rhythm Gastrointestinal (Abdomen): Inspection/Auscultation: abdomen normal to inspection; abdomen not distended Percussion/Palpation: + abdomen tender ( epigastric and right upper quadrant) and abdomen soft; no guarding and abdomen not rigid Skin: no rashes, warm and dry Psychiatric: A+Ox3, euthymic affect Results & Data Vital Signs (Past 12 Hours) Vital Signs Temp Pulse Pulse Resp BP Pulse Ox O2 Del Method 10/26/22 08:00 36.7 C 81 14 136/86 96 Room Air 10/26/22 04:48 Room Air 10/26/22 04:48 36.5 C 102 H 16 151/92 H 97 Room Air 10/26/22 03:00 90 16 138/86 97 Room Air 10/26/22 01:00 100 H 16 130/82 99 Room Air 10/25/22 23:00 89 15 141/84 H 97 Room Air 10/25/22 22:00 18 Laboratory Results 10/26/22 10/26/22 10/25/22 Range/Units 02:09 01:16 19:02 WBC (4.8-10.8) K/ul RBC (4.20-5.40) M/uL Hgb (12.0-16.0) g/dl Hct (37.0-47.0) % MCV (80.0-100.0) fL MCH (25.0-34.0) pg MCHC (32.0-36.0) g/dL RDW Std Deviation (36.4-46.3) fL RDW Coeff of Kenneth (11.5-14.5) % Plt Count (130-400) K/uL MPV (9.4-12.4) fL Immature Gran % (Auto) % Neut % (Auto) % Lymph % (Auto) % [place] % (Auto) % Eos % (Auto) % Baso % (Auto) % Neut # (Auto) (1.40-6.50) K/uL Lymph # (Auto) (1.2-3.4) K/uL [place] # (Auto) (0.11-0.59) K/uL Eos # (Auto) (0-0.50) K/uL Baso # (Auto) (0-0.2) K/uL Immature Gran # (Auto) (0.01-0.20) K/uL Sodium (136-145) mmol/L Potassium (3.5-5.1) mmol/L Chloride (98-107) mmol/L Carbon Dioxide (21-32) mmol/L Anion Gap (3-11) BUN (6-23) mg/dl Creatinine (0.6-1.2) mg/dl Est Cr Clr Drug Dosing ml/min Est GFR ( Amer) ml/min Est GFR (Non-Af Amer) ml/min BUN/Creatinine Ratio (10-20) Glucose (70-99(Fasting)) mg/dl Lactate 1.2 (0.4-2.0) mmol/L Calcium (8.6-10.3) mg/dl Magnesium (1.7-2.4) mg/dl Total Bilirubin (0.2-1.0) mg/dl Direct Bilirubin (0-0.2) mg/dl AST (13-39) U/L ALT (7-52) U/L Alkaline Phosphatase (34-104) U/L Total Protein (6.0-8.3) gm/dl Albumin (3.4-5.0) gm/dl Globulin (2.5-4.0) gm/dl Albumin/Globulin Ratio (0.9-2) Lipase (11-82) U/L HCG, Qual (Negative) Urine Color Dark Yellow Urine Appearance Clear (Clear) Urine pH 6.0 (4.5-7.5) Ur Specific [place] > 1.045 H (1.000-1.030) Urine Protein Trace H (Negative) Urine Glucose (UA) Negative (Negative) Urine Ketones Trace H (Negative) Urine Blood Negative (Negative) Urine Nitrite Negative (Negative) Urine Bilirubin 1+ H (Negative) Urine Urobilinogen Positive H (Negative) Ur Leukocyte Esterase 2+ H (Negative) Urine WBC (Auto) >30 H (0-5) /hpf Urine RBC (Auto) 0-4 (0-4) /hpf U Hyaline Cast (Auto) 0 (0-5) /lpf U Epithel Cells (Auto) >30 H (0-5) /lpf Urine Bacteria (Auto) Negative (Negative) Adenovirus (PCR) Not Detected (NotDetected) B. pertussis DNA (PCR) Not Detected (NotDetected) B.parapertussis DNA PCR Not Detected (NotDetected) C. pneumoniae DNA (PCR) Not Detected (NotDetected) Coronavirus OC43 (PCR) Not Detected (NotDetected) Coronavirus HKU1 (PCR) Not Detected (NotDetected) Coronavirus 229E (PCR) Not Detected (NotDetected) SARS-CoV-2 (PCR) Not Detected (NotDetected) Coronavirus NL63 (PCR) Not Detected (NotDetected) Human Metapneumovir PCR Not Detected (NotDetected) Influenza Type A (PCR) Not Detected (NotDetected) Influenza Type B (PCR) Not Detected (NotDetected) M. pneumoniae (PCR) Not Detected (NotDetected) Parainfluenza 1 (PCR) Not Detected (NotDetected) Parainfluenza 2 (PCR) Not Detected (NotDetected) Parainfluenza 3 (PCR) Not Detected (NotDetected) Parainfluenza 4 (PCR) Not Detected (NotDetected) RSV (PCR) Not Detected (NotDetected) Entero/Rhino (PCR) Not Detected (NotDetected) 10/25/22 10/25/22 10/25/22 Range/Units 19:02 19:02 19:02 WBC 11.15 H (4.8-10.8) K/ul RBC 4.48 (4.20-5.40) M/uL Hgb 9.8 L (12.0-16.0) g/dl Hct 32.1 L (37.0-47.0) % MCV 71.7 L (80.0-100.0) fL MCH 21.9 L (25.0-34.0) pg MCHC 30.5 L (32.0-36.0) g/dL RDW Std Deviation 38.4 (36.4-46.3) fL RDW Coeff of Kenneth 15.0 H (11.5-14.5) % Plt Count 611 H (130-400) K/uL MPV 8.5 L (9.4-12.4) fL Immature Gran % (Auto) 0.6 % Neut % (Auto) 69.8 % Lymph % (Auto) 19.6 % [place] % (Auto) 8.3 % Eos % (Auto) 1.2 % Baso % (Auto) 0.5 % Neut # (Auto) 7.78 H (1.40-6.50) K/uL Lymph # (Auto) 2.19 (1.2-3.4) K/uL [place] # (Auto) 0.92 H (0.11-0.59) K/uL Eos # (Auto) 0.13 (0-0.50) K/uL Baso # (Auto) 0.06 (0-0.2) K/uL Immature Gran # (Auto) 0.07 (0.01-0.20) K/uL Sodium 132 L (136-145) mmol/L Potassium 3.4 L (3.5-5.1) mmol/L Chloride 94 L (98-107) mmol/L Carbon Dioxide 28 (21-32) mmol/L Anion Gap 10 (3-11) BUN 13 (6-23) mg/dl Creatinine 0.82 (0.6-1.2) mg/dl Est Cr Clr Drug Dosing 113.8 ml/min Est GFR ( Amer) 106.0 ml/min Est GFR (Non-Af Amer) 91.4 ml/min BUN/Creatinine Ratio 15.9 (10-20) Glucose 100 H (70-99(Fasting)) mg/dl Lactate (0.4-2.0) mmol/L Calcium 9.4 (8.6-10.3) mg/dl Magnesium 1.9 (1.7-2.4) mg/dl Total Bilirubin 1.1 H (0.2-1.0) mg/dl Direct Bilirubin 0.3 H (0-0.2) mg/dl AST 17 (13-39) U/L ALT 16 (7-52) U/L Alkaline Phosphatase 72 (34-104) U/L Total Protein 7.4 (6.0-8.3) gm/dl Albumin 4.4 (3.4-5.0) gm/dl Globulin 3.0 (2.5-4.0) gm/dl Albumin/Globulin Ratio 1.5 (0.9-2) Lipase 14 (11-82) U/L HCG, Qual Negative (Negative) Urine Color Urine Appearance (Clear) Urine pH (4.5-7.5) Ur Specific [place] (1.000-1.030) Urine Protein (Negative) Urine Glucose (UA) (Negative) Urine Ketones (Negative) Urine Blood (Negative) Urine Nitrite (Negative) Urine Bilirubin (Negative) Urine Urobilinogen (Negative) Ur Leukocyte Esterase (Negative) Urine WBC (Auto) (0-5) /hpf Urine RBC (Auto) (0-4) /hpf U Hyaline Cast (Auto) (0-5) /lpf U Epithel Cells (Auto) (0-5) /lpf Urine Bacteria (Auto) (Negative) Adenovirus (PCR) (NotDetected) B. pertussis DNA (PCR) (NotDetected) B.parapertussis DNA PCR (NotDetected) C. pneumoniae DNA (PCR) (NotDetected) Coronavirus OC43 (PCR) (NotDetected) Coronavirus HKU1 (PCR) (NotDetected) Coronavirus 229E (PCR) (NotDetected) SARS-CoV-2 (PCR) (NotDetected) Coronavirus NL63 (PCR) (NotDetected) Human Metapneumovir PCR (NotDetected) Influenza Type A (PCR) (NotDetected) Influenza Type B (PCR) (NotDetected) M. pneumoniae (PCR) (NotDetected) Parainfluenza 1 (PCR) (NotDetected) Parainfluenza 2 (PCR) (NotDetected) Parainfluenza 3 (PCR) (NotDetected) Parainfluenza 4 (PCR) (NotDetected) RSV (PCR) (NotDetected) Entero/Rhino (PCR) (NotDetected) Diagnostic Findings ADDENDUM ADDENDUM: 10/25/22 23:47 Call Doctor Regarding Other, called Dr. Lazar on 10/25 23:47 (-04:00) Electronically signed by: Marcie Justin MD Electronically signed by: Marcie Justin MD 10/25/22 23:35 PM ADDENDUM END Exam(s): CT ABDOMEN + PELVIS With Contrast IV Amt: 94 ml optiray 320 EXAM: CT Abdomen and Pelvis With Intravenous Contrast CLINICAL HISTORY: Reason for exam: abd pain, n/v. TECHNIQUE: Axial computed tomography images of the abdomen and pelvis with intravenous contrast. Automated exposure control was utilized for the study. A dose lowering technique was utilized adhering to the principles of ALARA. CONTRAST: Patient received 94 ml optiray 320 of IV contrast COMPARISON: 10/22/2022. FINDINGS: Lung bases: Unremarkable. No mass. No consolidation. ABDOMEN: Liver: Unremarkable. No mass. Gallbladder and bile ducts: Nonvisualized gallbladder suggestive of previous cholecystectomy. No ductal dilation. Pancreas: Unremarkable. No mass. No ductal dilation. Spleen: Unremarkable. No splenomegaly. Adrenals: Unremarkable. No mass. Kidneys and ureters: Unremarkable. No solid mass. No hydronephrosis. Stomach and bowel: There is unusual distribution of air throughout the right colon along the wall, cannot exclude pneumatosis of the findings may indicate nonspecific distribution of air along the wall. Diffuse dilatation of the right colon and several small bowel loops demonstrated with fluid within the lumen. These findings are most likely secondary to an apple core lesion identified at the level of the right transverse colon, just to the left of the hepatic flexure of the colon. The remainder of the descending colon reveals decompressed lumen. No mucosal thickening. PELVIS: Appendix: No findings to suggest acute appendicitis. Bladder: Unremarkable. No mass. Reproductive: Unremarkable as visualized. ABDOMEN and PELVIS: Intraperitoneal space: Unremarkable. No free air. No significant fluid collection. Bones/joints: No acute fracture. No dislocation. Soft tissues: Unremarkable. Vasculature: Unremarkable. No abdominal aortic aneurysm. Lymph nodes: Unremarkable. No enlarged lymph nodes. IMPRESSION: 1. Distention of the small bowel and right colon, likely secondary to an obstructive process from an apple core lesion seen at the level of the transverse right colon, just to the left side of the hepatic flexure. Recommend follow-up with colonoscopy. 2. Distribution of punctate air along the wall of the right ascending colon, nonspecific, difficult to exclude early or mild pneumatosis. Clinical significance is indeterminate and if indicated, follow-up recommended to evaluate progression. 3. Question prior cholecystectomy otherwise unremarkable abdominal viscera.
--- NOTE | 2022-10-26 10:19 | Anesthesiology Consultation ---
Date of Service October 26, 2022 Assessment & Plan (1) Encounter for pre-operative examination: Chart Review Chart Review: Acceptable Risk for Surgery and Patient NOT seen in Pre Admission Testing Consults Requested none History Surgery Operation Date: 10/26/22 07:00 Proposed Procedures p Exploratory Laparotomy with Right Extended Hemicolectomy - Erlin Azul MD Height/Weight Height: 5 ft 6 in Weight: 102.9 kg Allergies Allergy/AdvReac Type Severity Reaction Status Date / Time No Known Allergies Allergy Mild Verified 08/27/22 09:17 Medications Home Medications Medication Instructions Recorded Confirmed Last Taken venlafaxine 150 mg 150 mg PO QAM ##0 12/03/17 10/25/22 05/06/21 07:00 capsule,extended release 24 hr (Effexor XR) gabapentin 100 mg capsule 100 mg PO QID #0 caps 09/25/20 10/25/22 05/06/21 21:00 aspirin 81 mg tablet,delayed 81 mg PO DAILY 09/22/21 10/25/22 Unknown release albuterol sulfate 90 mcg/actuation 2 puff inhalation Q4H PRN 03/17/22 10/25/22 Unknown aerosol inhaler (Ventolin HFA) Shortness Of Breath #18 grams cetirizine 10 mg tablet (Zyrtec) 10 mg PO HS 08/27/22 10/25/22 Unknown lisinopril 10 mg tablet 10 mg PO QAM #90 tabs 10/12/22 10/25/22 Unknown hydroxyzine HCl 10 mg tablet 10 mg PO TID PRN anxiety #30 tabs 10/22/22 10/25/22 Unknown Zofran 1 tab PO DIRECTED PRN N/V 10/25/22 10/25/22 10/25/22 acetaminophen 500 mg tablet 500 mg PO Q6H PRN Pain 10/25/22 10/25/22 10/25/22 fluticasone propionate 110 2 puff inhalation BID PRN Other 10/25/22 10/25/22 Unknown mcg/actuation HFA aerosol inhaler (Flovent HFA) Active Medications Generic Name Dose Route Start Last Admin Trade Name Freq PRN Reason Stop Dose Admin Enoxaparin Sodium 40 mg 10/26/22 09:00 10/26/22 08:24 Enoxaparin Inj 40 Mg/0.4 Ml Syr SQ 11/25/22 08:59 40 mg Q24H GAYLA Administration Fluticasone Furoate 1 puffs 10/26/22 09:00 10/26/22 08:24 Fluticasone Furoate 200mcg 14 Puffs/Inhaler INH 11/25/22 08:59 1 puffs DAILY GAYLA Administration Lactated Ringer's 1,000 mls @ 125 mls/hr 10/26/22 03:30 10/26/22 04:40 Lr IV 11/25/22 03:29 125 mls/hr .Q8H GAYLA Administration Morphine Sulfate 2 mg 10/26/22 04:07 10/26/22 04:39 Morphine Sulfate 2 Mg/Ml Carp IV 11/09/22 04:06 2 mg Q4H PRN Administration Moderate Pain (Scale 4, 5, 6) Morphine Sulfate 4 mg 10/26/22 04:07 10/26/22 08:24 Morphine Sulfate 4 Mg/Ml 1 Ml Carp\Vial IV 11/09/22 04:06 4 mg Q4H PRN Administration Severe Pain (Scale 7, 8, 9,10) Ondansetron HCl 4 mg 10/26/22 04:00 10/26/22 04:39 Ondansetron Inj 2 Mg/Ml 2 Ml Vial IV 11/25/22 03:59 4 mg Q4H PRN Administration Nausea Past Medical History Medical History Allergic rhinitis Anemia Anxiety Asthma inhaler prn>has not used recently History of COVID-19 02/2020--no issues now Major depression PTSD (post-traumatic stress disorder) Past Family History Family History Father Skin cancer Diabetes Hypertension Mother Diabetes Kidney disease Hypertension Other No family history of adverse response to anesthesia Denies family history of Ovarian cancer Prostate cancer Myocardial infarction Breast cancer Colorectal cancer Past Surgical History Surgical History History of tooth extraction all top teeth removed History of wisdom tooth extraction Hx laparoscopic cholecystectomy (05/07/21) Robotic Assisted Laparoscopic Cholecystectomy - Alexis Dyer DO 05/07/2021 Social History Smoking Status: Never smoker Do You Dip or Chew Tobacco: No Hx Alcohol Use: No alcohol intake frequency: holidays/special occasions only Hx Substance Use: No substance use type: does not use Physical Exam Vital Signs Last Vital Signs Temp 98.1 F 10/26/22 08:00 Pulse 81 10/26/22 08:00 Resp 14 10/26/22 08:00 BP 136/86 10/26/22 08:00 Pulse Ox 96 10/26/22 08:00 O2 Del Method Room Air 10/26/22 08:00 Testing Laboratory Results 10/25/22 19:02 10/25/22 19:02 Urine Color Dark Yellow 10/26/22 01:16 Urine Appearance Clear (Clear) 10/26/22 01:16 Urine pH 6.0 (4.5-7.5) 10/26/22 01:16 Ur Specific [place] > 1.045 (1.000-1.030) H 10/26/22 01:16 Urine Protein Trace (Negative) H 10/26/22 01:16 Urine Glucose (UA) Negative (Negative) 10/26/22 01:16 Urine Ketones Trace (Negative) H 10/26/22 01:16 Urine Nitrite Negative (Negative) 10/26/22 01:16 Ur Leukocyte Esterase 2+ (Negative) H 10/26/22 01:16 Urine WBC (Auto) >30 /hpf (0-5) H 10/26/22 01:16 Urine RBC (Auto) 0-4 /hpf (0-4) 10/26/22 01:16 U Hyaline Cast (Auto) 0 /lpf (0-5) 10/26/22 01:16 U Epithel Cells (Auto) >30 /lpf (0-5) H 10/26/22 01:16 Urine Bacteria (Auto) Negative (Negative) 10/26/22 01:16 Electrocardiogram Date: 10/22/22 Sinus tachycardia Diffuse Minor Nonspecific T wave abnormality Abnormal ECG Chest X-Ray Date: 10/22/22 Findings: + NAD
[2022-10-26] MEDS ORDERED: PROPOFOL IV EMULSION 10 MG/ML 20 ML VIAL IV ONE (10:35)
[2022-10-26] MEDS ORDERED: ONDANSETRON INJ 2 MG/ML 2 ML VIAL ONE (10:35)
[2022-10-26] MEDS ORDERED: MIDAZOLAM HCL 1 MG/ML 2ML VIAL ONE (10:35)
[2022-10-26] MEDS ORDERED: fentaNYL citrate PF 100 MCG/2 ML VIAL ONE (10:35)
[2022-10-26] MEDS ORDERED: LIDOCAINE 2% 2 ML VIAL/AMP(20MG/ML) INFIL ONE (10:35)
[2022-10-26] MEDS ORDERED: DEXAMETHASONE SOD INJ 4 MG/ML VIAL ONE (10:35)
[2022-10-26] MEDS ORDERED: KETAMINE 50 MG/5 ML SYRINGE ONE (10:37)
[2022-10-26] MEDS ORDERED: SUGAMMADEX SODIUM 200 MG/2 ML VIAL IV ONE (10:37)
[2022-10-26] MEDS ORDERED: ATROPINE SULFATE 0.1 MG/ML 10ML SYR IV PRN (10:58)
[2022-10-26] MEDS ORDERED: ePHEDrine sulfate 50 MG/ML AMP IV PRN (10:58)
[2022-10-26] MEDS ORDERED: cefOXitin 2,000 MG in DEXTROSE 5% 50 ML IV STA (10:59)
--- NOTE | 2022-10-26 13:38 | Post Operative Brief Note ---
Immediate Post Op Note v1 Date of Surgery October 26, 2022 Pre & Post Diagnosis Operation Date: 10/26/22 07:00 Pre-Op Diagnosis: BOWEL OBSTRUCTION Post-Op Diagnosis: BOWEL OBSTRUCTION I identified the patient and participated in the time-out.: Yes Procedure Operation Date: 10/26/22 07:00 Actual Procedures p Exploratory Laparotomy with Right Extended Hemicolectomy(Right) - Erlin Azul MD Surgeon Erlin Azul MD Fairground Operator KULDIP Enamorado assisted with tissue retraction, camera op, closure Estimated Blood Loss 25 Findings Consistent with Post-Op Diagnosis Large mass in the proximal to mid transverse colon; no peritoneal or omental mets, no masses palpable in the liver Drains Amin Catheter (inserted by Wendi Craft at beginning of case)
--- NOTE | 2022-10-26 13:51 | Operative Report ---
Post Operative Report Pre & Post Diagnosis Operation Date: 10/26/22 07:00 Pre-Op Diagnosis: BOWEL OBSTRUCTION Post-Op Diagnosis: BOWEL OBSTRUCTION I identified the patient and participated in the time-out.: Yes Procedure Operation Date: 10/26/22 07:00 Actual Procedures p Exploratory Laparotomy with Right Extended Hemicolectomy(Right) - Erlin Azul MD Surgeon Erlin Azul MD Geographic Information Systems Director KULDIP Enamorado assisted with tissue retraction, camera op, closure Estimated Blood Loss 25 Findings Consistent with Post-Op Diagnosis Large obstructing mass in the proximal to mid transverse colon; dilated fluid- filled right and proximal transverse colon proximal to the mass; no omental or peritoneal metastases noted; no masses palpable in the liver. Proceeded with extended right hemicolectomy with primary anastomosis Specimens Right and proximal transverse colon Drains None Anesthesia Type General Complications No immediate complications Indications Obstructing mass in the proximal to mid transverse colon Description of Procedure Patient was taken to the operating room, placed supine on the operating table. A timeout was performed, perioperative antibiotics were administered, SCD boots were placed. After adequate anesthesia and analgesia was obtained, a Amin catheter was placed, and the abdomen was prepped and draped in the normal sterile fashion. A midline incision was made curving around the umbilicus, this was carried down to the fascia. The fascia was opened with the electrocautery. The peritoneum was identified and entered. The abdomen was opened to its fullest extent. Immediately on entry we encountered a significant amount of inflammatory turbid fluid. There is no feculent fluid or purulent fluid within the abdomen. This fluid was suctioned free. The omentum was identified and retracted up and cephalad, exposing the transverse colon. I was able to identify the firm mass in the mid proximal transverse colon. There is a significant obstruction at this point and there was a dilated and significantly fluid-filled right colon. The liver was palpated and no masses were noted in either lobe of the liver. There is no evidence of omental or peritoneal metastases. A Bookwalter retractor was placed. We began our dissection at the cecum. The cecum and right colon were mobilized from the right pelvic sidewall along the white line of Toldt using a combination of blunt dissection and Bovie electrocautery. This was carried up into the hepatic flexure. Care was taken to avoid injury to the duodenum below as well as the kidney below. We then worked back from the transverse colon. The transverse colon was detached from the omentum at a point distal to the mass. This was then carried proximally. This was done with combination of the electrocautery and the LigaSure device. Carefully the hepatic flexure was mobilized up and into the incision. Once the mobilization was complete, a site was selected on the terminal ileum, and the bowel was transected in this location using a SEBAS stapler. Dissection then commenced in the mesentery with the LigaSure device, taking care to take the e ntire blood supply and lymphatics of the ileocolic and middle colic artery. First the ileocolic pedicle was skeletonized. Clamps were placed, and it was transected. The ileocolic pedicle was then oversewn with two 0-silk sutures. A site was selected approximately 6 cm distal to the mass on the transverse colon. The colon was transected in this location with a SEBAS stapler. The mesentery was then dissected with the LigaSure device back towards the middle colic pedicle. Again this was skeletonized, clamped, transected. The middle colic pedicle was ligated with two 0-silk sutures. The specimen was sent off the field for pathology. Attention was turned to hemostasis, which was noted to be excellent. The abdomen was copiously irrigated and suctioned free. An [id number], functional end-to-end anastomosis was then created between the terminal ileum and the mid transverse colon using the SEBAS stapler. The common channel was closed with a TA stapler. A stitch was placed at the base of the staple line of 3-0 silk. The mesenteric defect was closed with a running 3-0 Vicryl suture. Again hemostasis was checked and was excellent. Again the abdomen was copiously irrigated and suctioned free. As there was no spillage of bowel contents and no perforation, no drain was left. The omentum was replaced into the abdominal cavity. There was one section of the omentum that do the dissection was very long and thin. This was transected with the LigaSure device so as to avoid any risk of bowel obstruction due to bowel looping around this omentum. The removed omentum was sent off the field for specimen. The fascia was closed with a running #1 looped PDS suture. The subcutaneous tissue was irrigated and closed with surgical clips. Dressings were applied. A binder was applied. She tolerated the procedure without complication, was transferred in stable condition to the PACU. All instrument, needle, and sponge counts were correct at the end of the case. My mental health assistant was necessary throughout the procedure for tissue retraction, possible camera operation, and closure of the wounds. I understand that section 1842(b)(7)(D) of the Social Security act generally prohibits Medicare physician fee schedule payment for the services of assistants at surgery in teaching hospitals when qualified residents are available to furnish such services. I certify that the services for which payment is claimed were medically necessary and that no qualified resident was available to perform the services. I further understand that these services are subject to postpayment review by the Medicare carrier. I attest to the content of the Intraoperative Record and any orders documented therein. Any exceptions are noted below.
[2022-10-26] MEDS: fentaNYL citrate PF 100 MCG/2 ML VIAL IV PRN ×4 (14:02→14:17)
[2022-10-26] MEDS: HYDROmorphone INJ 2 MG/ML SYR/VIAL IV PRN ×4 (14:22→14:37)
--- NOTE | 2022-10-26 14:49 | Anesthesiology Progress Note ---
Date of Service October 26, 2022 Anesthesia Post Procedure Vital Signs Vital Signs: Temp Pulse Pulse Pulse Pulse Resp BP 10/26/22 14:40 103 H 12 10/26/22 14:30 103 H 12 10/26/22 14:20 106 H 12 10/26/22 14:10 107 H 12 10/26/22 14:00 111 H 12 10/26/22 13:50 113 H 20 10/26/22 13:40 96.8 F L 104 H 14 10/26/22 10:34 98.1 F 111 H 20 10/26/22 08:00 98.1 F 81 14 10/26/22 04:48 10/26/22 04:48 97.7 F 102 H 16 10/26/22 03:00 90 16 10/26/22 01:00 100 H 16 10/25/22 23:00 89 15 10/25/22 22:00 18 10/25/22 20:42 92 H 16 10/25/22 18:54 102 H 12 10/25/22 18:50 98.4 F 10/25/22 18:50 98.4 F 101 H 18 120/85 BP Pulse Ox O2 Del Method O2 Flow Rate 10/26/22 14:40 127/79 96 Oxymask 2 10/26/22 14:30 113/87 97 Oxymask 3 10/26/22 14:20 123/86 98 Oxymask 5 10/26/22 14:10 128/88 98 Oxymask 5 10/26/22 14:00 123/89 99 Oxymask 5 10/26/22 13:50 107/79 98 Oxymask 11 10/26/22 13:40 111/78 99 Oxymask 11 10/26/22 10:34 136/96 Room Air 10/26/22 08:00 136/86 96 Room Air 10/26/22 04:48 Room Air 10/26/22 04:48 151/92 H 97 Room Air 10/26/22 03:00 138/86 97 Room Air 10/26/22 01:00 130/82 99 Room Air 10/25/22 23:00 141/84 H 97 Room Air 10/25/22 22:00 10/25/22 20:42 118/84 100 Room Air 10/25/22 18:54 100 Room Air 10/25/22 18:50 07/23 18:50 100 Room Air Pain Intensity Upper Abdomen: Pain Intensity: 4 Abdomen: Pain Intensity: 6 Transfer of Care Handoff Completed per policy Notes Mental Status: alert / awake / arousable and participated in evaluation Patient Amnestic to Procedure: Yes Nausea / Vomiting: adequately controlled Pain: adequately controlled and improving with treatment Airway Patency, RR, SpO2: stable & adequate BP & HR: stable & adequate Hydration State: stable & adequate Anesthetic Complications: no major complications apparent and Pt Satisfied with anesthetic care
[2022-10-26] MEDS ORDERED: SODIUM CHLORIDE 0.9% 1000ML 1,000 ML IV SCH (15:15)
[2022-10-26] MEDS ORDERED: NALOXONE HCL 0.4 MG/1 ML VIAL/CARP IV PRN (15:15)
[2022-10-26 16:01] LABS: Hematocrit (blood only) 31.7 % (37.0-47.0); Hemoglobin 9.6 g/dl (12.0-16.0); Mean Corpuscular Hemoglobin 21.9 pg (25.0-34.0); Mean Corpuscular Hgb Conc 30.3 g/dL (32.0-36.0); Mean Corpuscular Volume 72.4 fL (80.0-100.0); Mean Platelet Volume 8.7 fL (9.4-12.4); Platelet Count 595 K/uL (130-400); RDW Coefficient of Variation 15.1 % (11.5-14.5); RDW Standard Deviation 38.9 fL (36.4-46.3); Red Blood Count 4.38 M/uL (4.20-5.40); White Blood Count 16.48 K/ul (4.8-10.8)
[2022-10-26] MEDS: MoRPHine SULFATE PCA 30 MG/30 ML IV PRN (16:13)
[2022-10-26 16:17] LABS: Basophils # (auto) 0.04 K/uL (0-0.2); Basophils % (auto) 0.2 %; Eosinophils # (auto) 0.01 K/uL (0-0.50); Eosinophils % (auto) 0.1 %; Immature Granulocytes % (auto) 0.6 %; Lymphocytes # (auto) 0.81 K/uL (1.2-3.4); Lymphocytes % (auto) 4.9 %; Neutrophils # (auto) 15.02 K/uL (1.40-6.50); Neutrophils % (auto) 91.2 %
[2022-10-26 16:42] LABS: Albumin Globulin Ratio 1.5 (0.9-2); Albumin Level 3.2 gm/dl (3.4-5.0); BUN Creatinine Ratio 16.9 (10-20); Bilirubin,Total 0.9 mg/dl (0.2-1.0); Calcium 7.9 mg/dl (8.6-10.3); Creatinine Clr Calc Pharmacy 158.2 ml/min; Est GFR (African American) 135.7 ml/min; Est GFR (Non-African American) 117.1 ml/min; Globulin 2.2 gm/dl (2.5-4.0); Magnesium 1.7 mg/dl (1.7-2.4); Potassium 3.9 mmol/L (3.5-5.1); Total Protein 5.4 gm/dl (6.0-8.3)
[2022-10-26] MEDS ORDERED: CHLORASEPTIC 1.4% SOLN 180 ML BTL MT PRN (17:06)
--- NOTE | 2022-10-26 17:14 | History & Physical Bridge Note ---
Date of Service October 26, 2022 History & Physical Bridge Note I have examined the patient, reviewed the History & Physical and in the interval since the performance of the History & Physical I have noted the following changes of clinical significance: Pt had right hemicolectomy today. Was seen post op and on EXHAUSTER ENGINEER pump. Having significant pain in throat from NGT and would like it to be removed. Pain in abdomen controlled with EXHAUSTER ENGINEER. No nausea. Labs repeated and iron studies show severe iron deficiency--she is agreeable to IV iron and reports having it in the past. VSS drowsy but wakes up and responds appropriately RRR no mgr CTAB no wcr Abd hypoactive BS, soft, dressing in place, +TTP over incision Ext no edema continue IVFS, NGT can be removed, continue strict NPO Dilaudid EXHAUSTER ENGINEER, await return of bowel function await path results start IV venofer x 3 doses follow CBC, CMP, Mag, phos in AM
[2022-10-26] MEDS: IRON SUCROSE 300 MG in SODIUM CHLORIDE 0.9% 250 ML IV SCH (17:33)
[2022-10-27] MEDS: LACTATED RINGER'S 1,000 ML IV SCH ×4 (00:05→22:29)
[2022-10-27] MEDS: MoRPHine SULFATE PCA 30 MG/30 ML IV PRN (04:45)
[2022-10-27] MEDS: KETOROLAC TROMETHAMINE 15 MG/ML VIAL IV PRN ×3 (05:58→20:21)
[2022-10-27 08:16] LABS: Basophils # (auto) 0.03 K/uL (0-0.2); Basophils % (auto) 0.2 %; Eosinophils # (auto) 0.05 K/uL (0-0.50); Eosinophils % (auto) 0.4 %; Hematocrit (blood only) 29.3 % (37.0-47.0); Hemoglobin 8.9 g/dl (12.0-16.0); Immature Granulocytes # (auto) 0.15 K/uL (0.01-0.20); Immature Granulocytes % (auto) 1.1 %; Lymphocytes # (auto) 1.62 K/uL (1.2-3.4); Mean Corpuscular Hemoglobin 21.5 pg (25.0-34.0); Mean Corpuscular Hgb Conc 30.4 g/dL (32.0-36.0); Mean Corpuscular Volume 70.9 fL (80.0-100.0); Mean Platelet Volume 8.5 fL (9.4-12.4); Monocytes % (auto) 7.4 %; Neutrophils # (auto) 10.63 K/uL (1.40-6.50); Neutrophils % (auto) 78.9 %; Nucleated RBC # (auto) 0.05 K/uL (0-0.12); Nucleated RBC % (auto) 0.4 %; Platelet Count 576 K/uL (130-400); RDW Coefficient of Variation 15.1 % (11.5-14.5); RDW Standard Deviation 37.5 fL (36.4-46.3); Red Blood Count 4.13 M/uL (4.20-5.40); White Blood Count 13.48 K/ul (4.8-10.8)
[2022-10-27] MEDS: ENOXAPARIN INJ 40 MG/0.4 ML SYR SQ SCH (08:28)
[2022-10-27] MEDS: FLUTICASONE FUROATE 200MCG 14 PUFFS/INHALER INH SCH (08:29)
[2022-10-27 08:51] LABS: Albumin Level 3.2 gm/dl (3.4-5.0); BUN Creatinine Ratio 13.8 (10-20); Bilirubin Direct 0.2 mg/dl (0-0.2); Bilirubin,Total 0.7 mg/dl (0.2-1.0); Calcium 8.4 mg/dl (8.6-10.3); Creatinine Clr Calc Pharmacy 143.6 ml/min; Est GFR (African American) 131.5 ml/min; Est GFR (Non-African American) 113.4 ml/min; Magnesium 1.7 mg/dl (1.7-2.4); Potassium 3.7 mmol/L (3.5-5.1); Total Protein 5.6 gm/dl (6.0-8.3)
[2022-10-27] MEDS: IRON SUCROSE 300 MG in SODIUM CHLORIDE 0.9% 250 ML IV SCH (09:28)
[2022-10-27] MEDS ORDERED: MoRPHine SULFATE 2 MG/ML CARP IV PRN (10:27)
[2022-10-27] MEDS ORDERED: HYDROmorphone INJ 1 MG/ML SYRINGE IV PRN (10:47)
[2022-10-27] MEDS ORDERED: oxyCODONE/ACETAMINOPHEN 5mg/325mg TAB PO PRN ×2 (10:47)
[2022-10-27] MEDS: VENLAFAXINE HCL XR 150 MG CAPXR PO SCH (12:04)
[2022-10-27] MEDS: GABAPENTIN 100 MG CAP PO SCH ×3 (12:05→20:21)
--- NOTE | 2022-10-27 12:33 | Surgery Progress Note ---
Date of Service October 27, 2022 Assessment & Plan (1) Colonic mass: (2) Large bowel obstruction: Plan POD # 1 s/p ex lap, extended right hemicolectomy with primary anastomosis -afebrile, vss, tachycardic likely secondary to pain - leukocytosis improved to 13k (16k Preop) - Hgb 8.9 but hemodynamically stable - +flatus Plan: Can start clears, advised to go slow and stop if any nausea or increased bloating continue pain management, stop LIBRARY PAGE as refused last evening, can start PO Percocet, IV Toradol prn, IV Dilaudid prn for severe discontinue munoz Can start some home meds ambulate scds and lovenox for dvt prophylaxis continue abdominal binder repeat am labs incentive spirometry Discussed with Dr. Azul who agrees with above. Admission and Anticipated Discharge Date Admission Date: October 26, 2022 Subjective feeling very frustrated, wants something to drink, demanding clear liquids, cannot do any more ice chips and sips of water passing gas burping no nausea or vomiting pain about 3/10, states the morphine LIBRARY PAGE was not working last night but per records she was refusing wants munoz removed Per nursing she has been demanding clear liquids and removing Munoz Physical Exam Constitutional: WD/WN, vitals as above + obese; no acute distress, not ill appearing and not in distress Gastrointestinal (Abdomen): Inspection/Auscultation: abdomen normal to inspection and + abdominal surgical incision (dressing clean/dry/intact); abdomen not distended and + abnormal bowel sounds Percussion/Palpation: + abdomen tender (at midline incision, appropriate postop) and abdomen soft; no guarding, abdomen not rigid and abdomen not firm Skin: no rashes, warm and dry Psychiatric: Orientation: alert and oriented x 3 Results & Data Vital Signs (Past 12 Hours) Vital Signs Temp Pulse Pulse Resp BP Pulse Ox O2 Del Method 10/27/22 07:56 37.2 C 120 H 18 134/88 97 Room Air 10/27/22 02:47 36.9 C 104 H 18 125/85 93 Room Air Laboratory Results 10/27/22 10/27/22 10/26/22 Range/Units 07:47 07:47 15:37 WBC 13.48 H (4.8-10.8) K/ul RBC 4.13 L (4.20-5.40) M/uL Hgb 8.9 L (12.0-16.0) g/dl Hct 29.3 L (37.0-47.0) % MCV 70.9 L (80.0-100.0) fL MCH 21.5 L (25.0-34.0) pg MCHC 30.4 L (32.0-36.0) g/dL RDW Std Deviation 37.5 (36.4-46.3) fL RDW Coeff of Kenneth 15.1 H (11.5-14.5) % Plt Count 576 H (130-400) K/uL MPV 8.5 L (9.4-12.4) fL Immature Gran % (Auto) 1.1 % Neut % (Auto) 78.9 % Lymph % (Auto) 12.0 % Sargent % (Auto) 7.4 % Eos % (Auto) 0.4 % Baso % (Auto) 0.2 % Neut # (Auto) 10.63 H (1.40-6.50) K/uL Lymph # (Auto) 1.62 (1.2-3.4) K/uL Sargent # (Auto) 1.00 H (0.11-0.59) K/uL Eos # (Auto) 0.05 (0-0.50) K/uL Baso # (Auto) 0.03 (0-0.2) K/uL Immature Gran # (Auto) 0.15 (0.01-0.20) K/uL Absolute Nucleated RBC 0.05 (0-0.12) K/uL Nucleated RBC % (auto) 0.4 % Sodium 135 L 134 L (136-145) mmol/L Potassium 3.7 3.9 (3.5-5.1) mmol/L Chloride 101 101 (98-107) mmol/L Carbon Dioxide 29 27 (21-32) mmol/L Anion Gap 5 6 (3-11) BUN 9 10 (6-23) mg/dl Creatinine 0.65 0.59 L (0.6-1.2) mg/dl Est Cr Clr Drug Dosing 143.6 158.2 ml/min Est GFR ( Amer) 131.5 135.7 ml/min Est GFR (Non-Af Amer) 113.4 117.1 ml/min BUN/Creatinine Ratio 13.8 16.9 (10-20) Glucose 106 H 126 H (70-99(Fasting)) mg/dl Calcium 8.4 L 7.9 L (8.6-10.3) mg/dl Phosphorus 3.0 (2.5-4.9) mg/dl Magnesium 1.7 1.7 (1.7-2.4) mg/dl Iron 21 L (35-150) mcg/dl TIBC 315 (250-450) mcg/dl Unsaturated IBC 294 (155-355) mcg/dl Transferrin % Sat 7 L (15-50) % Ferritin 11.0 (8-388) ng/ml Total Bilirubin 0.7 0.9 (0.2-1.0) mg/dl Direct Bilirubin 0.2 (0-0.2) mg/dl AST 13 18 (13-39) U/L ALT 13 14 (7-52) U/L Alkaline Phosphatase 55 56 (34-104) U/L Total Protein 5.6 L 5.4 L D (6.0-8.3) gm/dl Albumin 3.2 L 3.2 L (3.4-5.0) gm/dl Globulin 2.2 L (2.5-4.0) gm/dl Albumin/Globulin Ratio 1.5 (0.9-2) 10/26/22 Range/Units 15:37 WBC 16.48 H (4.8-10.8) K/ul RBC 4.38 (4.20-5.40) M/uL Hgb 9.6 L (12.0-16.0) g/dl Hct 31.7 L (37.0-47.0) % MCV 72.4 L (80.0-100.0) fL MCH 21.9 L (25.0-34.0) pg MCHC 30.3 L (32.0-36.0) g/dL RDW Std Deviation 38.9 (36.4-46.3) fL RDW Coeff of Kenneth 15.1 H (11.5-14.5) % Plt Count 595 H (130-400) K/uL MPV 8.7 L (9.4-12.4) fL Immature Gran % (Auto) 0.6 % Neut % (Auto) 91.2 % Lymph % (Auto) 4.9 % Sargent % (Auto) 3.0 % Eos % (Auto) 0.1 % Baso % (Auto) 0.2 % Neut # (Auto) 15.02 H (1.40-6.50) K/uL Lymph # (Auto) 0.81 L (1.2-3.4) K/uL Sargent # (Auto) 0.50 (0.11-0.59) K/uL Eos # (Auto) 0.01 (0-0.50) K/uL Baso # (Auto) 0.04 (0-0.2) K/uL Immature Gran # (Auto) 0.10 (0.01-0.20) K/uL Absolute Nucleated RBC (0-0.12) K/uL Nucleated RBC % (auto) % Sodium (136-145) mmol/L Potassium (3.5-5.1) mmol/L Chloride (98-107) mmol/L Carbon Dioxide (21-32) mmol/L Anion Gap (3-11) BUN (6-23) mg/dl Creatinine (0.6-1.2) mg/dl Est Cr Clr Drug Dosing ml/min Est GFR ( Amer) ml/min Est GFR (Non-Af Amer) ml/min BUN/Creatinine Ratio (10-20) Glucose (70-99(Fasting)) mg/dl Calcium (8.6-10.3) mg/dl Phosphorus (2.5-4.9) mg/dl Magnesium (1.7-2.4) mg/dl Iron (35-150) mcg/dl TIBC (250-450) mcg/dl Unsaturated IBC (155-355) mcg/dl Transferrin % Sat (15-50) % Ferritin (8-388) ng/ml Total Bilirubin (0.2-1.0) mg/dl Direct Bilirubin (0-0.2) mg/dl AST (13-39) U/L ALT (7-52) U/L Alkaline Phosphatase (34-104) U/L Total Protein (6.0-8.3) gm/dl Albumin (3.4-5.0) gm/dl Globulin (2.5-4.0) gm/dl Albumin/Globulin Ratio (0.9-2)
[2022-10-27] MEDS: HYDROmorphone INJ 0.5 MG/0.5 ML SYR IV PRN ×2 (15:51→23:18)
--- NOTE | 2022-10-27 17:20 | Hospitalist Progress Note ---
Date of Service October 27, 2022 Assessment & Plan (1) Large bowel obstruction: Plan: Patient is a 37-year-old female with history of known colonic mass found by CT imaging in August. She was referred for colonoscopy at that time but did not follow up. Returns here now with N/V, abd pain, found to have large bowel obstruction and colon mass. NGT placed on admission Surgery consulted-Had urgent hemicolectomy with removal of mass on 10/26 Pathology pending but likely malignancy NGT now removed, Amin removed, pt ambulating -dcd morphine gtt and converted to IV dilaudid prn, IV toradol prn, po percocet prn, and will add IV APAP -continue LR at 125 cc/h until taking adequate po -adv diet to clears today -monitor for return of bowel function -if path shows malignancy, will consult Oncology -continue ambulation as tolerated (2) Colonic mass: Plan: - As above (3) Iron deficiency anemia: Plan: hgb 9.6 on admission and now down to 8.9 post-op worsening over last few months likely 2/2 colon mass Fe studies checked here show transferrin sat only 7% and ferritin quite low at 11 -start Venofer 300mg IV daily x 3 doses -follow CBC -transfuse if hgb< 7.0 (4) Anxiety: Plan: -restart Effexor now that taking clears po -continue Ativan as needed for anxiety (5) Hypertension: Plan: BPs starting to get a bit more elevated likely 2/2 pain but also off lisinopril x several days -continue to hold lisinopril for now Is on ASA 81mg daily for "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 Denies nausea but is belching. No flatus yet but feels like it's getting close. Was up and ambulating the halls today with her family and then had more severe pain-took a dose of dilaudid and this has really helped. Physical Exam Constitutional: WD/WN, vitals as above Neck: trachea midline, no thyromegaly Respiratory: normal respiratory effort, lungs clear to auscultation Cardiovascular: RRR, no murmur, no edema Chest (Breasts): Chest: normal inspection of chest Gastrointestinal (Abdomen): Inspection/Auscultation: + hypoactive bowel sounds; + abdomen abnormal to inspection (abdominal binder in place and not removed) and abdomen not distended Percussion/Palpation: + abdomen tender (over incision) and abdomen soft; no guarding Musculoskeletal: Extremities: extremities normal to inspection; no cyanosis and no clubbing Skin: no rashes, warm and dry Neurologic: moves all extremities and awake; no focal motor deficits Psychiatric: A+Ox3, euthymic affect Lymphatic: no lymphedema Results & Data Results & Data Vital Signs (Past 12 Hours) Vital Signs Temp Pulse Resp BP Pulse Ox O2 Del Method 10/27/22 15:50 36.5 C 110 H 16 144/98 H 96 Room Air 10/27/22 07:56 37.2 C 120 H 18 134/88 97 Room Air Laboratory Results CBC, CMP, magnesium, phosphorus, Fe studies reviewed PG Care Time/CCT Total # of Minutes Spent Total Time Spent with Patient: Total time spent is greater than 50% in coordination of care (as documented) at patient's floor/unit and/or counseling patient: Coding Level of Care Code 72414 SUB INP/OBS CARE 3/50MIN Diagnoses Large bowel obstruction K56.609 Colonic mass K63.89 Iron deficiency anemia D50.9 Anxiety F41.9 Hypertension I10 PTSD (post-traumatic stress disorder) F43.10 Major depression F32.9 Asthma J45.909
[2022-10-27] MEDS: ACETAMINOPHEN 1,000 MG/100 ML VIAL IV PRN (18:00)
[2022-10-28] MEDS: ACETAMINOPHEN 1,000 MG/100 ML VIAL IV PRN ×2 (01:33→19:39)
[2022-10-28] MEDS: KETOROLAC TROMETHAMINE 15 MG/ML VIAL IV PRN ×3 (04:25→16:22)
[2022-10-28] MEDS: LACTATED RINGER'S 1,000 ML IV SCH (05:46)
[2022-10-28 06:54] LABS: Basophils # (auto) 0.03 K/uL (0-0.2); Basophils % (auto) 0.4 %; Eosinophils # (auto) 0.29 K/uL (0-0.50); Eosinophils % (auto) 3.7 %; Immature Granulocytes # (auto) 0.19 K/uL (0.01-0.20); Immature Granulocytes % (auto) 2.4 %; Lymphocytes # (auto) 1.35 K/uL (1.2-3.4); Lymphocytes % (auto) 17.1 %; Mean Corpuscular Hemoglobin 21.7 pg (25.0-34.0); Mean Corpuscular Hgb Conc 30.4 g/dL (32.0-36.0); Mean Corpuscular Volume 71.4 fL (80.0-100.0); Mean Platelet Volume 8.6 fL (9.4-12.4); Monocytes # (auto) 0.61 K/uL (0.11-0.59); Monocytes % (auto) 7.7 %; Neutrophils # (auto) 5.42 K/uL (1.40-6.50); Neutrophils % (auto) 68.7 %; Nucleated RBC # (auto) 0.04 K/uL (0-0.12); Nucleated RBC % (auto) 0.5 %; Platelet Count 426 K/uL (130-400); RDW Coefficient of Variation 15.3 % (11.5-14.5); RDW Standard Deviation 38.6 fL (36.4-46.3); Red Blood Count 3.22 M/uL (4.20-5.40); White Blood Count 7.89 K/ul (4.8-10.8)
[2022-10-28 07:07] LABS: BUN Creatinine Ratio 12.7 (10-20); Calcium 8.1 mg/dl (8.6-10.3); Creatinine Clr Calc Pharmacy 169.7 ml/min; Est GFR (African American) 138.9 ml/min; Est GFR (Non-African American) 119.8 ml/min; Magnesium 1.7 mg/dl (1.7-2.4); Phosphorus 2.6 mg/dl (2.5-4.9); Potassium 3.2 mmol/L (3.5-5.1)
[2022-10-28 07:19] LABS: Microcytosis Present; Polychromasia 1+; Tear Drop Cells 1+
[2022-10-28] MEDS: GABAPENTIN 100 MG CAP PO SCH ×4 (07:44→20:58)
[2022-10-28] MEDS: VENLAFAXINE HCL XR 150 MG CAPXR PO SCH (07:45)
[2022-10-28] MEDS: FLUTICASONE FUROATE 200MCG 14 PUFFS/INHALER INH SCH (07:45)
[2022-10-28] MEDS: ENOXAPARIN INJ 40 MG/0.4 ML SYR SQ SCH (07:45)
[2022-10-28] MEDS: IRON SUCROSE 300 MG in SODIUM CHLORIDE 0.9% 250 ML IV SCH (07:57)
--- NOTE | 2022-10-28 08:48 | Surgery Progress Note ---
Date of Service October 28, 2022 Assessment & Plan (1) Colonic mass: (2) Large bowel obstruction: Plan POD # 2 s/p ex lap, extended right hemicolectomy with primary anastomosis -afebrile, vss, slight tachycardia, no change - leukocytosis improved to 7k (16k Preop) - Hgb 7.0 but hemodynamically stable - +flatus Plan: continue clears continue pain management, continue PO Percocet, IV Toradol prn, IV Dilaudid prn for severe ambulate scds and lovenox for dvt prophylaxis continue abdominal binder repeat am labs incentive spirometry Admission and Anticipated Discharge Date Admission Date: October 26, 2022 Subjective She is doing well this morning. Tolerating clear liquids. She is passing flatus. No bowel movement yet. She is been up and moving around. She denies fevers or chills. She denies nausea vomiting. Physical Exam Physical Exam: AF VSS NAD, a and O x3 Abdomen: Soft, mild TTP at incision Incision C/D/I, sivakumar in place Results & Data Vital Signs (Past 12 Hours) Vital Signs Temp Pulse Resp BP Pulse Ox O2 Del Method 10/28/22 07:06 36.9 C 107 H 16 118/77 97 Room Air 10/27/22 21:07 36.9 C 97 H 18 149/87 H 96 Room Air
[2022-10-28] MEDS: HYDROmorphone INJ 0.5 MG/0.5 ML SYR IV PRN (09:10)
[2022-10-28] MEDS: MAGNESIUM SULFATE / D5W 1 GM/100 ML BAG IV SCH ×2 (10:05→11:47)
[2022-10-28] MEDS: POTASSIUM CHLORIDE / WTR 10 MEQ/100 ML PLCT IV SCH ×4 (10:10→13:51)
--- NOTE | 2022-10-28 11:28 | Hospitalist Progress Note ---
Date of Service October 28, 2022 Assessment & Plan (1) Large bowel obstruction: Plan: Patient is a 37-year-old female with history of known colonic mass found by CT imaging in August. She was referred for colonoscopy at that time but did not follow up. Returns here now with N/V, abd pain, found to have large bowel obstruction and colon mass. NGT placed on admission Surgery consulted-Had urgent hemicolectomy with removal of mass on 10/26 Pathology still pending but likely malignancy NGT now removed, Amin removed, pt ambulating halls Passing flatus and diet advanced to clears 10/27--> tolerating clears With acute blood loss anemia on chronic Fe def anemia Leukocytosis now resolved and was related to vomiting and bowel obstruction as well as reactive to severe iron deficiency -continue IV dilaudid prn, IV toradol prn, po percocet prn, and IV APAP prn -dc IVFs as tolerating plenty of clears -continue clear liquids today-defer to Surgery to advance, awaiting return of bowel function -if path shows malignancy, will consult Oncology-no need to do prior to that -continue ambulation -follow CBC, CMP, Mag, Phos and replace lytes as needed--> give KCl IV riders and IV magnesium today (2) Colonic mass: Plan: - As above (3) Iron deficiency anemia: Plan: hgb 9.6 on admission and now down to 7.0 post-op with associated reactive leukocytosis and thrombocytosis both now improving anemia worsening over last few months likely 2/2 colon mass Fe studies checked here show transferrin sat only 7% and ferritin quite low at 11 -completed Venofer 300mg IV daily x 3 doses -follow CBC -transfuse if hgb< 7.0 -check CBC again today at 1200 and transfuse if < 7.0 -ok to continue Lovenox for DV proph (4) Anxiety: Plan: -continue Effexor -continue Ativan as needed for anxiety (5) Hypertension: Plan: BPs controlled, sometimes elevated with pain -continue to hold lisinopril from home for now Is on ASA 81mg daily for "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 Had some mild nausea today that improved with pain control. Denies any other issues except she did start menstruating last night. She is agreeable to blood transfusion if needed No bleeding from anywhere else noted Physical Exam Constitutional: WD/WN, vitals as above Neck: trachea midline, no thyromegaly Respiratory: normal respiratory effort, lungs clear to auscultation Cardiovascular: RRR, no murmur, no edema Chest (Breasts): Chest: normal inspection of chest Gastrointestinal (Abdomen): Inspection/Auscultation: + hypoactive bowel sounds; + abdomen abnormal to inspection (abdominal binder in place and not removed) and abdomen not distended Percussion/Palpation: + abdomen tender (over incision) and abdomen soft; no guarding Musculoskeletal: Extremities: extremities normal to inspection; no cyanosis and no clubbing Skin: no rashes, warm and dry Neurologic: moves all extremities and awake; no focal motor deficits Psychiatric: A+Ox3, euthymic affect Lymphatic: no lymphedema Results & Data Results & Data Vital Signs (Past 12 Hours) Vital Signs Temp Pulse Resp BP Pulse Ox O2 Del Method 10/28/22 07:06 36.9 C 107 H 16 118/77 97 Room Air Laboratory Results CBC, CMP, magnesium reviewed PG Care Time/CCT Total # of Minutes Spent Total Time Spent with Patient: Total time spent is greater than 50% in coordination of care (as documented) at patient's floor/unit and/or counseling patient: Coding Level of Care Code 09463 SUB INP/OBS CARE 3/50MIN Diagnoses Large bowel obstruction K56.609 Colonic mass K63.89 Iron deficiency anemia D50.9 Anxiety F41.9 Hypertension I10 PTSD (post-traumatic stress disorder) F43.10 Major depression F32.9 Asthma J45.909
[2022-10-28 12:01] LABS: Hematocrit (blood only) 22.6 % (37.0-47.0); Mean Corpuscular Hemoglobin 22.2 pg (25.0-34.0); Mean Corpuscular Volume 71.7 fL (80.0-100.0); Mean Platelet Volume 8.6 fL (9.4-12.4); Nucleated RBC # (auto) 0.02 K/uL (0-0.12); Nucleated RBC % (auto) 0.2 %; Platelet Count 422 K/uL (130-400); RDW Coefficient of Variation 15.7 % (11.5-14.5); RDW Standard Deviation 39.9 fL (36.4-46.3); Red Blood Count 3.15 M/uL (4.20-5.40); White Blood Count 8.06 K/ul (4.8-10.8)
[2022-10-29] MEDS: KETOROLAC TROMETHAMINE 15 MG/ML VIAL IV PRN ×2 (00:47→07:43)
[2022-10-29 06:15] LABS: Hematocrit (blood only) 24.7 % (37.0-47.0); Hemoglobin 7.5 g/dl (12.0-16.0); Mean Corpuscular Hemoglobin 21.9 pg (25.0-34.0); Mean Corpuscular Hgb Conc 30.4 g/dL (32.0-36.0); Mean Platelet Volume 8.5 fL (9.4-12.4); Nucleated RBC # (auto) 0.05 K/uL (0-0.12); Nucleated RBC % (auto) 0.5 %; Platelet Count 462 K/uL (130-400); RDW Coefficient of Variation 15.9 % (11.5-14.5); RDW Standard Deviation 39.9 fL (36.4-46.3); Red Blood Count 3.43 M/uL (4.20-5.40); White Blood Count 10.73 K/ul (4.8-10.8)
[2022-10-29 06:41] LABS: Basophils # (auto) 0.03 K/uL (0-0.2); Basophils % (auto) 0.3 %; Eosinophils # (auto) 0.34 K/uL (0-0.50); Eosinophils % (auto) 3.2 %; Immature Granulocytes # (auto) 0.55 K/uL (0.01-0.20); Immature Granulocytes % (auto) 5.1 %; Lymphocytes # (auto) 1.37 K/uL (1.2-3.4); Lymphocytes % (auto) 12.8 %; Monocytes # (auto) 0.62 K/uL (0.11-0.59); Monocytes % (auto) 5.8 %; Neutrophils # (auto) 7.82 K/uL (1.40-6.50); Neutrophils % (auto) 72.8 %; Polychromasia 1+; Tear Drop Cells 1+
[2022-10-29 06:42] LABS: BUN Creatinine Ratio 13.2 (10-20); Bilirubin Direct 0.2 mg/dl (0-0.2); Bilirubin,Total 0.6 mg/dl (0.2-1.0); Calcium 8.2 mg/dl (8.6-10.3); Creatinine Clr Calc Pharmacy 176.1 ml/min; Est GFR (African American) 140.6 ml/min; Est GFR (Non-African American) 121.3 ml/min; Phosphorus 3.3 mg/dl (2.5-4.9); Potassium 3.6 mmol/L (3.5-5.1); Total Protein 5.6 gm/dl (6.0-8.3)
[2022-10-29] MEDS: VENLAFAXINE HCL XR 150 MG CAPXR PO SCH (07:45)
[2022-10-29] MEDS: FLUTICASONE FUROATE 200MCG 14 PUFFS/INHALER INH SCH (07:45)
[2022-10-29] MEDS: ENOXAPARIN INJ 40 MG/0.4 ML SYR SQ SCH (07:45)
[2022-10-29] MEDS: GABAPENTIN 100 MG CAP PO SCH ×4 (07:45→20:53)
--- NOTE | 2022-10-29 09:21 | Surgery Progress Note ---
Date of Service October 29, 2022 Assessment & Plan (1) Colonic mass: (2) Large bowel obstruction: Plan POD # 3 s/p ex lap, extended right hemicolectomy with primary anastomosis -afebrile, vss, slight tachycardia, no change - leukocytosis resolved - Hgb 7.5 hemodynamically stable - + return of bowel function Plan: advance to full liquids this am and then likely soft diet this evening continue pain management, continue PO Percocet, IV Toradol prn, IV Dilaudid prn for severe ambulate scds and lovenox for dvt prophylaxis continue abdominal binder incentive spirometry continue medical management Discussed with Dr. Azul who agrees with above. Admission and Anticipated Discharge Date Admission Date: October 26, 2022 Subjective felt sightly nauseated this am but felt it was due to the clears liquids and was not persistent no vomiting has had 4 loose bowel movements, continues to pass flatus pain better controlled, still taking Toradol no chest pain or shortness of breath urinating and ambulating without difficulty Physical Exam Constitutional: WD/WN, vitals as above + obese, cooperative and comfortable; no acute distress and not ill appearing Respiratory: normal respiratory effort; no respiratory distress Gastrointestinal (Abdomen): Inspection/Auscultation: abdomen normal to inspection, + abdominal surgical incision (covered with clean/dry/intact dressing) and + hypoactive bowel sounds; abdomen not distended and + abnormal bowel sounds Percussion/Palpation: + abdomen tender (at midline incision appropriate postop) and abdomen soft; no guarding, abdomen not rigid and abdomen not firm Skin: no rashes, warm and dry Psychiatric: Orientation: alert and oriented x 3 Results & Data Vital Signs (Past 12 Hours) Vital Signs Temp Pulse Pulse Resp BP Pulse Ox O2 Del Method 10/29/22 07:06 37.1 C 98 H 17 135/88 96 Room Air 10/28/22 22:39 36.5 C 95 H 16 139/86 97 Room Air Laboratory Results 10/29/22 10/29/22 10/28/22 Range/Units 05:36 05:36 11:35 WBC 10.73 8.06 (4.8-10.8) K/ul RBC 3.43 L 3.15 L (4.20-5.40) M/uL Hgb 7.5 L 7.0 L (12.0-16.0) g/dl Hct 24.7 L 22.6 L (37.0-47.0) % MCV 72.0 L 71.7 L (80.0-100.0) fL MCH 21.9 L 22.2 L (25.0-34.0) pg MCHC 30.4 L 31.0 L (32.0-36.0) g/dL RDW Std Deviation 39.9 39.9 (36.4-46.3) fL RDW Coeff of Kenneth 15.9 H 15.7 H (11.5-14.5) % Plt Count 462 H 422 H (130-400) K/uL MPV 8.5 L 8.6 L (9.4-12.4) fL Immature Gran % (Auto) 5.1 % Neut % (Auto) 72.8 % Lymph % (Auto) 12.8 % [place] % (Auto) 5.8 % Eos % (Auto) 3.2 % Baso % (Auto) 0.3 % Neut # (Auto) 7.82 H (1.40-6.50) K/uL Lymph # (Auto) 1.37 (1.2-3.4) K/uL [place] # (Auto) 0.62 H (0.11-0.59) K/uL Eos # (Auto) 0.34 (0-0.50) K/uL Baso # (Auto) 0.03 (0-0.2) K/uL Immature Gran # (Auto) 0.55 H (0.01-0.20) K/uL Absolute Nucleated RBC 0.05 0.02 (0-0.12) K/uL Nucleated RBC % (auto) 0.5 0.2 % Polychromasia 1+ Tear Drop Cells 1+ Sodium 134 L (136-145) mmol/L Potassium 3.6 (3.5-5.1) mmol/L Chloride 101 (98-107) mmol/L Carbon Dioxide 27 (21-32) mmol/L Anion Gap 6 (3-11) BUN 7 (6-23) mg/dl Creatinine 0.53 L (0.6-1.2) mg/dl Est Cr Clr Drug Dosing 176.1 ml/min Est GFR ( Amer) 140.6 ml/min Est GFR (Non-Af Amer) 121.3 ml/min BUN/Creatinine Ratio 13.2 (10-20) Glucose 90 (70-99(Fasting)) mg/dl Calcium 8.2 L (8.6-10.3) mg/dl Phosphorus 3.3 (2.5-4.9) mg/dl Magnesium 2.0 (1.7-2.4) mg/dl Total Bilirubin 0.6 (0.2-1.0) mg/dl Direct Bilirubin 0.2 (0-0.2) mg/dl AST 11 L (13-39) U/L ALT 9 (7-52) U/L Alkaline Phosphatase 54 (34-104) U/L Total Protein 5.6 L (6.0-8.3) gm/dl Albumin 3.0 L (3.4-5.0) gm/dl
--- NOTE | 2022-10-29 22:42 | Hospitalist Progress Note ---
Date of Service October 29, 2022 Assessment & Plan (1) Large bowel obstruction: Plan: Patient is a 37-year-old female with history of known colonic mass found by CT imaging in August. She was referred for colonoscopy at that time but did not follow up. Returns here now with N/V, abd pain, found to have large bowel obstruction and colon mass. NGT placed on admission Surgery consulted-Had urgent hemicolectomy with removal of mass on 10/26 Pathology still pending but likely malignancy NGT now removed, Amin removed, pt ambulating halls Passing flatus and diet advanced to clears 10/27--> tolerating clears With acute blood loss anemia on chronic Fe def anemia Leukocytosis now resolved and was related to vomiting and bowel obstruction as well as reactive to severe iron deficiency -continue IV dilaudid prn, IV toradol prn, po percocet prn, and IV APAP prn -dc IVFs as tolerating plenty of clears -continue clear liquids today-defer to Surgery to advance, awaiting return of bowel function -if path shows malignancy, will consult Oncology-no need to do prior to that -continue ambulation -follow CBC, CMP, Mag, Phos and replace lytes as needed--> continue to replace if needed. (2) Colonic mass: Plan: - As above (3) Iron deficiency anemia: Plan: Acute blood loss on chronic iron deficiency anemia hgb 9.6 on admission and now down to 7.0 post-op with associated reactive leukocytosis and thrombocytosis both now improving anemia worsening over last few months likely 2/2 colon mass Fe studies checked here show transferrin sat only 7% and ferritin quite low at 11 -completed Venofer 300mg IV daily x 3 doses -follow CBC -transfuse if hgb< 7.0 -check CBC again today at 1200 and transfuse if < 7.0 -ok to continue Lovenox for DV proph (4) Anxiety: Plan: -continue Effexor -continue Ativan as needed for anxiety (5) Hypertension: Plan: BPs controlled, sometimes elevated with pain -continue to hold lisinopril from home for now Is on ASA 81mg daily for "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 Patient is tolerating food. Review of Systems Review of Systems: All systems reviewed & are unremarkable except as noted in HPI & below Physical Exam Constitutional: WD/WN, vitals as above Neck: trachea midline, no thyromegaly Respiratory: normal respiratory effort, lungs clear to auscultation Cardiovascular: RRR, no murmur, no edema Chest (Breasts): Chest: normal inspection of chest Gastrointestinal (Abdomen): Inspection/Auscultation: + hypoactive bowel sounds; + abdomen abnormal to inspection (abdominal binder in place and not removed) and abdomen not distended Percussion/Palpation: + abdomen tender (over incision) and abdomen soft; no guarding Musculoskeletal: Extremities: extremities normal to inspection; no cyanosis and no clubbing Skin: no rashes, warm and dry Neurologic: moves all extremities and awake; no focal motor deficits Psychiatric: A+Ox3, euthymic affect Lymphatic: no lymphedema Results & Data Results & Data Vital Signs (Past 12 Hours) Vital Signs Temp Pulse Resp BP Pulse Ox O2 Del Method 10/29/22 21:13 36.8 C 103 H 18 139/92 97 Room Air 10/29/22 15:00 36.8 C 110 H 17 146/83 H 96 Room Air PG Care Time/CCT Total # of Minutes Spent Total Time Spent with Patient: Total time spent is greater than 50% in coordination of care (as documented) at patient's floor/unit and/or counseling patient: Coding Level of Care Code 82402 SUB INP/OBS CARE 2/35MIN Diagnoses Large bowel obstruction K56.609 Colonic mass K63.89 Iron deficiency anemia D50.9 Anxiety F41.9 Hypertension I10 PTSD (post-traumatic stress disorder) F43.10 Major depression F32.9 Asthma J45.909
[2022-10-30] MEDS: ENOXAPARIN INJ 40 MG/0.4 ML SYR SQ SCH (07:01)
[2022-10-30] MEDS: FLUTICASONE FUROATE 200MCG 14 PUFFS/INHALER INH SCH (08:08)
[2022-10-30 08:16] LABS: BUN Creatinine Ratio 8.2 (10-20); C Reactive Protein 8.79 mg/dl (0-0.5); Calcium 8.3 mg/dl (8.6-10.3); Est GFR (African American) 134.2 ml/min; Est GFR (Non-African American) 115.8 ml/min; Magnesium 1.8 mg/dl (1.7-2.4); Potassium 3.2 mmol/L (3.5-5.1)
[2022-10-30] MEDS: GABAPENTIN 100 MG CAP PO SCH ×2 (08:16→12:29)
[2022-10-30] MEDS: VENLAFAXINE HCL XR 150 MG CAPXR PO SCH (08:16)
[2022-10-30 09:34] LABS: Hematocrit (blood only) 25.8 % (37.0-47.0); Hemoglobin 7.9 g/dl (12.0-16.0); Mean Corpuscular Hemoglobin 22.6 pg (25.0-34.0); Mean Corpuscular Hgb Conc 30.6 g/dL (32.0-36.0); Mean Corpuscular Volume 73.9 fL (80.0-100.0); Mean Platelet Volume 8.8 fL (9.4-12.4); Nucleated RBC # (auto) 0.04 K/uL (0-0.12); Nucleated RBC % (auto) 0.4 %; Platelet Count 508 K/uL (130-400); RDW Coefficient of Variation 16.7 % (11.5-14.5); RDW Standard Deviation 40.3 fL (36.4-46.3); Red Blood Count 3.49 M/uL (4.20-5.40); White Blood Count 11.34 K/ul (4.8-10.8)
--- NOTE | 2022-10-30 11:44 | Surgery Progress Note ---
Date of Service October 30, 2022 Assessment & Plan (1) Colonic mass: (2) Large bowel obstruction: Plan POD # 4 s/p ex lap, extended right hemicolectomy with primary anastomosis -afebrile, vss, slight tachycardia, no change -mild leukocytosis - Hgb 7.9, improving, hemodynamically stable - + return of bowel function Plan: okay from surgical standpoint for discharge discharge instructions reviewed rx for Percocet sent to pharmacy 1 week f/u with Dr. Azul Discussed with Dr. hawkins who agrees with above. Admission and Anticipated Discharge Date Admission Date: October 26, 2022 Subjective feeling great this morning, really wants to go home tolerating soft diet passing gas and liquid bowel movements no nausea or vomiting no chest pain or shortness of breath urinating without difficulty pain well controlled and minimal at incision site Physical Exam Constitutional: WD/WN, vitals as above + obese, cooperative and comfortable; no acute distress and not ill appearing Gastrointestinal (Abdomen): Inspection/Auscultation: abdomen normal to inspection and + abdominal surgical incision (clean/dry/intact with sivakumar); abdomen not distended Percussion/Palpation: + abdomen tender (at midline incision) and abdomen soft; no guarding, abdomen not rigid and abdomen not firm Skin: no rashes, warm and dry Psychiatric: A+Ox3, euthymic affect Results & Data Vital Signs (Past 12 Hours) Vital Signs Temp Pulse Resp BP Pulse Ox O2 Del Method 10/30/22 07:28 37.0 C 107 H 16 129/83 98 Room Air Laboratory Results 10/30/22 10/30/22 10/30/22 Range/Units 06:41 06:41 06:41 WBC 11.34 H (4.8-10.8) K/ul RBC 3.49 L (4.20-5.40) M/uL Hgb 7.9 L (12.0-16.0) g/dl Hct 25.8 L (37.0-47.0) % MCV 73.9 L (80.0-100.0) fL MCH 22.6 L (25.0-34.0) pg MCHC 30.6 L (32.0-36.0) g/dL RDW Std Deviation 40.3 (36.4-46.3) fL RDW Coeff of Kenneth 16.7 H (11.5-14.5) % Plt Count 508 H (130-400) K/uL MPV 8.8 L (9.4-12.4) fL Absolute Nucleated RBC 0.04 (0-0.12) K/uL Nucleated RBC % (auto) 0.4 % Sodium 137 (136-145) mmol/L Potassium 3.2 L (3.5-5.1) mmol/L Chloride 102 (98-107) mmol/L Carbon Dioxide 28 (21-32) mmol/L Anion Gap 7 (3-11) BUN 5 L (6-23) mg/dl Creatinine 0.61 (0.6-1.2) mg/dl Est Cr Clr Drug Dosing 153.0 ml/min Est GFR ( Amer) 134.2 ml/min Est GFR (Non-Af Amer) 115.8 ml/min BUN/Creatinine Ratio 8.2 L (10-20) Glucose 103 H (70-99(Fasting)) mg/dl Calcium 8.3 L (8.6-10.3) mg/dl Phosphorus 3.0 (2.5-4.9) mg/dl Magnesium 1.8 (1.7-2.4) mg/dl C-Reactive Protein 8.79 H (0-0.5) mg/dl Procalcitonin 0.34 (0-0.5) ng/ml MLH1 Promoter Methylat 10/26/22 Range/Units Unknown WBC (4.8-10.8) K/ul RBC (4.20-5.40) M/uL Hgb (12.0-16.0) g/dl Hct (37.0-47.0) % MCV (80.0-100.0) fL MCH (25.0-34.0) pg MCHC (32.0-36.0) g/dL RDW Std Deviation (36.4-46.3) fL RDW Coeff of Kenneth (11.5-14.5) % Plt Count (130-400) K/uL MPV (9.4-12.4) fL Absolute Nucleated RBC (0-0.12) K/uL Nucleated RBC % (auto) % Sodium (136-145) mmol/L Potassium (3.5-5.1) mmol/L Chloride (98-107) mmol/L Carbon Dioxide (21-32) mmol/L Anion Gap (3-11) BUN (6-23) mg/dl Creatinine (0.6-1.2) mg/dl Est Cr Clr Drug Dosing ml/min Est GFR ( Amer) ml/min Est GFR (Non-Af Amer) ml/min BUN/Creatinine Ratio (10-20) Glucose (70-99(Fasting)) mg/dl Calcium (8.6-10.3) mg/dl Phosphorus (2.5-4.9) mg/dl Magnesium (1.7-2.4) mg/dl C-Reactive Protein (0-0.5) mg/dl Procalcitonin (0-0.5) ng/ml MLH1 Promoter Methylat Pending
--- NOTE | 2022-10-30 11:57 | Discharge Summary ---
Date of Service October 30, 2022 Admission HPI Per Admitting Provider Patient is a 37-year-old female presents to the hospital for nausea and vomiting. Since last , patient has had intermittent nausea with poor p.o. intake and it was acutely worse tonight compared to earlier. She was in the ED 2 days ago and at that time she was told she had a "GI bug". She reports to me that the only thing that she is able to keep down is Sprite and some water. Of note, patient had CT of the and then day and was found to have a lesion suspicious for colonic malignancy. She was to follow-up and have a colonoscopy done, however, she was unable to tolerate the prep and this was never done. Patient denies headache, bright red blood per rectum, hematemesis, or symptoms. She does report that her last bowel movement was 10/25 in the afternoon. Otherwise no other complaints at this time ED course: Patient evaluated by ED provider. Labs were significant for mildly elevated white count 11.1, hemoglobin of 9.8, platelet count of 611, sodium of 132, potassium 3.4, chloride of 94, total bilirubin 1.1, direct bilirubin of 0.3, and urinalysis positive for bilirubin, leukocyte esterase, and white blood cells. A CT of the abdomen demonstrated distention of the small bowel and right colon likely secondary from obstructive process from an apple core lesion seen at the level of the transverse right colon. Due to poor p.o. intake, likely obstruction, and hypokalemia, the hospital service was consulted for admission and further management. Principal Diagnosis large bowel obstruction Discharge Exam Constitutional WD/WN, vitals as above Eyes PERRL, conjunctivae normal, anicteric sclerae + anicteric sclerae Neck trachea midline, no thyromegaly Respiratory normal respiratory effort, lungs clear to auscultation Cardiovascular RRR, no murmur, no edema Chest (Breasts) Chest: normal inspection of chest Gastrointestinal (Abdomen) Inspection/Auscultation: + hypoactive bowel sounds; + abdomen abnormal to inspection (abdominal binder in place and not removed) and abdomen not distended Percussion/Palpation: + abdomen tender (over incision) and abdomen soft; no guarding Musculoskeletal Head/Neck/Chest: normocephalic and head atraumatic Extremities: extremities normal to inspection; no cyanosis and no clubbing Skin no rashes, warm and dry Neurologic moves all extremities and awake; no focal motor deficits Psychiatric A+Ox3, euthymic affect Lymphatic no lymphedema Discharge Data Allergies Allergy/AdvReac Type Severity Reaction Status Date / Time No Known Allergies Allergy Mild Verified 08/27/22 09:17 Consultations 10/26/22 00:52 ED Decision to Admit Stat 10/26/22 04:00 Consult General Surgery Routine Procedures Performed Operation Date: 10/26/22 07:00 Actual Procedures p Exploratory Laparotomy with Right Extended Hemicolectomy(Right) - Erlin Azul MD Ordered Studies 10/25/22 20:27 CT abd pelvis IV con only Stat Hospital Course (1) Large bowel obstruction: Patient is a 37-year-old female with history of known colonic mass found by CT imaging in August. She was referred for colonoscopy at that time but did not follow up. Returns here now with N/V, abd pain, found to have large bowel obstruction and colon mass. NGT placed on admission Surgery consulted-Had urgent hemicolectomy with removal of mass on 10/26 Pathology still pending but likely malignancy NGT now removed, Amin removed, pt ambulating halls Passing flatus and diet advanced to clears 10/27--> tolerating clears With acute blood loss anemia on chronic Fe def anemia Leukocytosis now resolved and was related to vomiting and bowel obstruction as well as reactive to severe iron deficiency -continue IV dilaudid prn, IV toradol prn, po percocet prn, and IV APAP prn -dc IVFs as tolerating plenty of clears -continue clear liquids today-defer to Surgery to advance, awaiting return of bowel function -if path shows malignancy, will consult Oncology-no need to do prior to that -continue ambulation On day of discharge WBC mildly elevated, however patient is clinically improving. Will discharge patient, surgery and patient agree with discharge. Patient will followup with PCP, if symptoms worsen, or patient has a fever, patient can return to the ED. 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 Will follow up with oncology. Biopsy report showed the following: - This infiltrative adenocarcinoma extends through the muscularis propria to the junction of the muscularis propria and the pericolic fat, but it fails to infiltrate the pericolic fat. - The proximal margin of resection, distal margin of resection, and the mesenteric resection margin are all free of carcinoma. - The appendix is histologically unremarkable. - The segment of ileum reveals lymphoid hyperplasia. - 53 pericolic lymph nodes are identified and all of these lymph nodes are negative for carcinoma. (2) Colonic mass: - As above (3) Iron deficiency anemia: Acute blood loss on chronic iron deficiency anemia hgb 9.6 on admission and now down to 7.0 post-op with associated reactive leukocytosis and thrombocytosis both now improving anemia worsening over last few months likely 2/2 colon mass Fe studies checked here show transferrin sat only 7% and ferritin quite low at 11 -completed Venofer 300mg IV daily x 3 doses (4) Anxiety: -continue Effexor -continue Ativan as needed for anxiety (5) Hypertension: BPs controlled, sometimes elevated with pain -continue to hold lisinopril from home for now Is on ASA 81mg daily for "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 as per her Wildlife Control Operator's recommendation-continue to hold this for now as well (6) PTSD (post-traumatic stress disorder): -continue Effexor and gabapentin (7) Major depression: -As above (8) Asthma: - Albuterol as needed for wheezing/shortness of breath -no acute issues Total Time Total Time Spent Total Time Spent (In Minutes): 32 Discharge Plan Discharge Items Patient Disposition: Home - Self-Care Reason For Visit: BOWEL OBSTRUCTION Discharge Diagnosis: bowel obstruction Activity: Resume your previous activity Non-emergency contact: Primary Care Provider Call non-emergency contact if: you have any medication questions Follow-up/Referrals: Erlin Azul MD [Physician] - 11/06/22 9:30 am Svetlana Hunt DO [Primary Care Provider] - 11/11/22 10:20 am Diet: Low Fiber Addtl Attending Provider Instructions: recommend close followup with your PCP in 1 week. Addtl E D Tech Provider Instructions: Post-Surgical ~Discharge Instructions Activity Recommendations: - lifting limitation: (10 pounds for 6 weeks), - exercise/sex/sports limit: (nonstrenuous for 6 weeks), - driving or machine use limit: (none for 1 week or until pain free and no longer taking narcotic pain medication), - Shower/bathe limit: (may shower, no submerging incision underwater for 2 weeks) Diet: - Low fiber diet for 2 weeks SPECIAL CARE INSTRUCTIONS: - May shower. Let water run over area and pat dry. - Surgical sivakumar will be removed in office - Call the surgeon's office with any questions or concerns - - (ex. temperature higher than 101 degrees F, excessive bleeding or increasing abdominal pain, redness at incision site, purulent drainage from incision site, persistent nausea or vomiting). MEDICATIONS: - Resume previous medications unless instructed otherwise by your surgeon. - Tylenol 650 mg every 6 hours as needed - Percocet 1 every 4 hours, as needed for moderate to severe pain FOLLOW UP VISIT: -call the office with any questions/concerns. Office number Pending Studies at Discharge: No Stand-Alone Forms: My [facility] [employer], Pain - Opioid Pain Management Medications and DC Order Prescriptions: New oxycodone-acetaminophen 5-325 mg tablet 1 tab PO Q4H PRN (Reason: pain) Qty: 18 0RF Continued venlafaxine [Effexor XR] 150 mg Capsule,Extended Release 24hr 150 mg PO QAM Qty: 0 gabapentin 100 mg capsule 100 mg PO QID Qty: 0 hydroxyzine HCl 10 mg tablet 10 mg PO TID PRN (Reason: anxiety) Qty: 30 2RF albuterol sulfate [Ventolin HFA] 90 mcg/actuation HFA aerosol inhaler 2 puff INHALATION Q4H PRN (Reason: Shortness Of Breath) Qty: 18 1RF cetirizine [Zyrtec] 10 mg Tablet 10 mg PO HS acetaminophen 500 mg Tablet 500 mg PO Q6H PRN (Reason: Pain) Zofran 1 tab PO DIRECTED PRN (Reason: N/V) fluticasone propionate [Flovent HFA] 110 mcg/actuation HFA aerosol inhaler 2 puff INHALATION BID PRN (Reason: Other) Patient Comments: has not been taking Discontinued lisinopril 10 mg tablet 10 mg PO QAM Qty: 90 1RF aspirin 81 mg tablet,delayed release (DR/EC) 81 mg PO DAILY Patient Comments: on hold currently Discharge Orders: Discharge Order (Routine); Ordered 10/30/22 Ordered By: Owen Peña/Other Patient Handouts: Exploratory Laparotomy, Low-Fiber Diet, Types of Colon Resections Admission Data Admit Date/Time: 10/26/22 02:33 Attending Provider: Owen Webster Admit Provider: Aung Thomas Primary Care Provider: Svetlana Hunt Other Providers: Anibal Luther ; Erlin Azul Other Interventions: Discharge Summary Assessment (RN) Last Done: 10/30/22 12:19 Coding Level of Care Code 21488 INP/OBS DISCH >30 MIN Diagnoses Large bowel obstruction K56.609 Colonic mass K63.89 Iron deficiency anemia D50.9 Anxiety F41.9 Hypertension I10 PTSD (post-traumatic stress disorder) F43.10 Major depression F32.9 Asthma J45.909
--- NOTE | 2022-11-02 20:26 | Billing Data ---
Date of Service November 02, 2022 Coding Level of Care Code 28064 INT INP/OBS CARE
== END 2022-10-30 13:09 | disposition home or self-care (01) | DRG 330 ==
LOC: ED 18:46 → 3N 10-26 02:33 → SUATTDRO 10-26 02:33 → 3N 10-26 03:25